=== PATIENT | female | born 1990 | race Caucasian/White ===

== ENCOUNTER 2023-11-06 19:49 | Outpatient (REF) | payer OTHER, SELFPAY ==
[2023-11-12 10:11] LABS: Age Gdln ACOG Testing Note (.); HPV Aptima Negative (Negative); IGP, Aptima HPV, rfx 16/18,45 Note (.)
== END 2023-11-06 19:50 | disposition home or self-care (01) ==
LOC: LAB 19:49
PROVIDERS: PCP Family Medicine; Visit Provider Obstetrics & Gynecology
DX: Z01.419 Encounter for gynecological examination (general) (routine) without abnormal findings (principal)
CPT/HCPCS: 87624; G0145

== ENCOUNTER 2023-11-18 14:32 | Outpatient (OUT) | payer OTHER, SELFPAY ==
--- NOTE | 2023-11-18 14:36 | US_ITS ---
The [address] [address] Patient Name: KHRIS LANG MRN: [id number] date: 1990 Sex: F Assigned Patient Location: [facility] Current Patient Location: Accession/Order Number: [id number] Exam Date: 11/18/2023 14:36 Report Date: 11/19/2023 07:06 At the request of: MARLY IGLESIAS Procedure: US pelvis w/ transvaginal EXAMINATION: US pelvis w/ transvaginal HISTORY: PELVIC PAIN COMPARISON: 10/29/2020 FINDINGS: Transabdominal and transvaginal images The uterus is surgically absent The right ovary is not visualized The left ovary is seen on transabdominal images measuring 3.1 x 1.8 x 3.2 cm. Identified in the left ovary is an area of anechoic echogenicity measuring 1.7 x 1.5 x 1.2 cm. No ascites US/US pelvis w/ transvaginal IMPRESSION: 1.7 cm left ovarian cyst Electronically authenticated by: KIRT ZEE Date: 11/19/2023 07:06
--- OUTSIDE RECORDS SUMMARY | 2023-11-18 14:56 | XMS_ITS | CCD ---
Author Organization [facility] Care Team Providers Care Mounter Sousaphones Name Role Phone KHUSHBU ROJAS Attending Unavailable KIRT DAMON Primary Care Unavailable Kirt Damon Primary Care Provider DR ЕКАТЕРИНА FORD Attending Unavailable LILIANA, DR ЕКАТЕРИНА Corbin Admitting Unavailable DEFRANCE, DR MORALEZ Primary Care Unavailable LILIANA, DR ЕКАТЕРИНА Corbin Consulting Unavailable Humphrey, Monisha Consulting Unavailable DEFRANCE, DR MORALEZ Primary Care Unavailable MATI, DR SOM Ocasio Attending Unavailabl e MATI, DR SOM Ocasio Admitting Unavailabl e MATI, DR SOM Ocasio Consulting Unavailabl e YAYO, DR KIRT Junior Consulting Unavailable FERNANDO, DR YOUNG Attending Unavailable FERNANDO, DR YOUNG Admitting Unavailable DEFRANCE, DR MORALEZ Primary Care Unavailable MATI, DR SOM Ocasio Consulting Unavailabl e YAYO, DR KIRT Junior Consulting Unavailable FERNANDO, DR YOUNG Consulting Unavailable Said, Monisha Consulting Unavailable KELSIE, DR LUKE Attending Unavailable DEFRANCE, DR MORALEZ Primary Care Unavailable KELSIE, DR LUKE Admitting Unavailable KELSIE, DR LUKE Consulting Unavailable DEFRANCE, DR MORALEZ Primary Care Unavailable KELSIE, DR LUKE Attending Unavailable KELSIE, DR LUKE Admitting Unavailable DEFRANCE, DR MORALEZ Primary Care Unavailable KELSIE, DR LUKE Attending Unavailable MISC, DR DOCTOR Referring Unavailable KARASINoemi, DR NARAYAN Consulting Unavailable KELSIE, DR LUKE Admitting Unavailable KELSIE, DR LUKE Consulting Unavailable KELSIE, DR LUKE Consulting Unavailable DEFRANCE, DR MORALEZ Primary Care Unavailable KELSIE, DR LUKE Admitting Unavailable KELSIE, DR LUKE Attending Unavailable NYA AMOS Consulting Unavailable NAZIA MULLER Consulting Unavailable KELSIE, DR LUKE Procedure Practitioner Unavailab le GEOFF, DR NARAYAN Consulting Unavailable GEOFF, DR NARAYAN Attending Unavailable KARASINoemi, DR NARAYAN Admitting Unavailable DEFRANCE, DR MORALEZ Primary Care Unavailable KELSIE, DR LUKE Consulting Unavailable KELSIE, DR LUKE Attending Unavailable KELSIE, DR LUKE Admitting Unavailable KLESIE, DR LUKE Admitting Unavailable KELSIE, DR LUKE Consulting Unavailable DEFRANCE, DR MORALEZ Primary Care Unavailable KELSIE, DR LUKE Attending Unavailable Defrance Kirt SEVILLA Primary Care Provider SHADI, KIRT Choi Attending Unavailable DEFRANCE, KIRT Choi Referring Unavailable DEFRANCE, KIRT Choi Primary Care Unavailable DEFRANCE, KIRT Choi Referring Unavailable DEFRANCE, KIRT Choi Primary Care Unavailable JULISSA BAHENA Attending Unavailable DEFRANCE, KIRT Choi Referring Unavailable TIMMIOSWALDO Thompson Attending Unavailable DEFRANCE, KIRT Choi Referring Unavailable KELSIEMARLY Attending Unavailable Allergies Allergy Classification Reported Allergen(s) Allergy Type Date of Onset Reaction(s) Facility (3 sources) Adhesive agent; Translations: [ADHESIVE] Drug allergy (disorder) 5 [facility] Repository (2 sources) Adhesive agent Propensity to adverse reactions to drug 3 [id number] Medications Current Medications Medication Drug Class(es) Dates Sig (Normalized) Sig (Original) cefdinir 300 mg oral capsule (2 sources) Cephalosporin Antibacterial Start: 10-08-2023 End: 10-18-2023 take 1 capsule by mouth in the morning, then take 1 capsule by mouth at bedtime cefDINIR (OMNICEF) 300 mg capsule Take 1 capsule (300 mg total) by mouth in the morning and 1 capsule (300 mg total) before bedtime. Do all this for 10 days. 20 capsule 0 10/08/2023 10/18/2023 Active ciprofloxacin 3 mg/ml / dexamethasone 1 mg/ml otic suspension (2 sources) Corticosteroid, Quinolone Antimicrobial Start: 09-10-2023 ciprofloxacin-dexAM ETHasone (CIPRODEX) otic suspension etonogestrel 68 mg drug implant (2 sources) Progestin Etonogestrel 68 MG SC implant 68 mg by Implant route once. 0 Active hydrocortisone 10 mg/ml topical cream (2 sources) Corticosteroid Start: 06-07-2022 hydrocortisone (HYTONE) 1 % cream Apply to affected area 2 times daily 15 g 1 06/07/2022 Active ibuprofen 800 mg oral tablet (2 sources) Nonsteroidal Anti-inflammatory Drug Start: 09-10-2023 take 1 tablet by mouth three times daily ibuprofen (MOTRIN) 800 mg tablet Take 1 tablet (800 mg total) by mouth 3 (three) times a day. 90 tablet 5 09/10/2023 Active LORazepam 2 mg oral tablet (2 sources) Benzodiazepine Start: 08-11-2023 take 1 tablet by mouth every eight hours as needed for anxiety LORazepam (ATIVAN) 2 mg tablet Indications: Tic Take 1 tablet (2 mg total) by mouth every 8 (eight) hours as needed for anxiety. 30 tablet 0 08/11/2023 Active Problems Active Problems Problem Classification Problem Date Documented Date Episodic/Chronic Disorders usually diagnosed in infancy, childhood, or adolescence (2 sources) Tic disorder; Translations: [Tic disorder, unspecified] Onset: 12-06-2021 12-06-2021 Chronic Epilepsy; convulsions (1 source) Epilepsy, unspecified, not intractable, without status epilepticus; Translations: [EPILEPSY UNS NOT INTRACT W/O SE] Onset: 01-23-2021 Chronic Immunizations and screening for infectious disease (1 source) Encounter for screening for human papillomavirus (HPV); Translations: [ENC SCREENING HUMAN PAPILLOMAVIRUS] Onset: 09-19-2021 Episodic Menstrual disorders (4 sources) Excessive and frequent menstruation with regular cycle; Translations: [Dysmenorrhea, unspecified] Onset: 01-12-2021 Chronic Mood disorders (1 source) Major depressive disorder, single episode, unspecified; Translations: [SHANTI DEPRESS D/O SINGLE EPIS UNS] Onset: 01-23-2021 Chronic Other ear and sense organ disorders (2 sources) Bilateral hearing loss; Translations: [Unspecified hearing loss, bilateral] Onset: 02-15-2019 02-15-2019 Chronic Other female genital disorders (1 source) Unspecified dyspareunia; Translations: [UNSPECIFIED DYSPAREUNIA] Onset: 01-23-2021 Chronic Other female genital disorders (4 sources) Other specified noninflammatory disorders of vagina; Translations: [OTH SPEC NONINFLAMMATORY D/O VAGINA] Onset: 09-18-2021 Episodic Other hereditary and degenerative nervous system conditions (2 sources) Orofacial dyskinesia; 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] Onset: 12-06-2021 12-06-2021 Chronic Other nutritional; endocrine; and metabolic disorders (1 source) Body mass index (BMI) 40.0-44.9, adult; Translations: [BODY MASS INDEX BMI 40.0-44.9 ADULT] Onset: 01-23-2021 Chronic Other nutritional; endocrine; and metabolic disorders (1 source) Morbid (severe) obesity due to excess calories; Translations: [MORBID SEVERE OBES D/T EXCESS MILAD] Onset: 01-23-2021 Chronic Other nutritional; endocrine; and metabolic disorders (1 source) Obesity, unspecified; Translations: [OBESITY UNSPECIFIED] Onset: 10-31-2020 Chronic Other nutritional; endocrine; and metabolic disorders (1 source) Body mass index (BMI) 45.0-49.9, adult; Translations: [BODY MASS INDEX BMI 45.0-49.9 ADULT] Onset: 10-31-2020 Chronic Other screening for suspected conditions (not mental disorders or infectious disease) (1 source) Encounter for screening for malignant neoplasm of cervix; Translations: [ENC SCREENING MALIG NEOPLASM CERV] Onset: 09-19-2021 Episodic Other upper respiratory infections (5 sources) Acute ethmoidal sinusitis; Translations: [Acute ethmoidal sinusitis, unspecified] Onset: 10-08-2023 10-08-2023 Episodic Substance-related disorders (2 sources) Nicotine dependence, other tobacco product, uncomplicated; Translations: [Nicotine dependence, cigarettes, uncomplicated] Onset: 10-31-2020 Chronic Unclassified (1 source) CONTACT W/AND (SUSP) EXPOS COVID-19; Translations: [CONTACT W/AND (SUSP) EXPOS COVID-19] Onset: 02-01-2021 Unclassified (1 source) Sinus Problem Onset: 10-08-2023 Unclassified (1 source) Earache Onset: 10-08-2023 Past or Other Problems Problem Classification Problem Date Documented Date Episodic/Chronic Abdominal pain (14 sources) Pelvic and perineal pain; Translations: [Unspecified abdominal pain] Onset: 10-29-2020 Episodic Fever of unknown origin (1 source) Fever, unspecified; Translations: [FEVER UNSPECIFIED] Onset: 01-23-2021 Episodic Fluid and electrolyte disorders (1 source) Dehydration; Translations: [DEHYDRATION] Onset: 02-01-2021 Episodic Mood disorders (2 sources) Mood disorders Onset: 10-08-2023 10-08-2023 Nausea and vomiting (1 source) Nausea; Translations: [NAUSEA] Onset: 02-01-2021 Episodic Other aftercare (1 source) Other fpc (current) drug therapy; Translations: [OTH [facility] CURRENT DRUG THERAPY] Onset: 02-01-2021 Episodic Other connective tissue disease (1 source) Pain in left arm; Translations: [Left arm pain] Episodic Other female genital disorders (1 source) Other specified noninflammatory disorders of uterus; Translations: [OTH SPEC NONINFLAMMATORY D/O UTERUS] Onset: 10-31-2020 Episodic Other upper respiratory disease (2 sources) Nasal congestion; Translations: [Nasal congestion] Onset: 02-15-2019 02-15-2019 Episodic Otitis media and related conditions (2 sources) Perforation of left tympanic membrane; Translations: [Unspecified perforation of tympanic membrane, left ear] Onset: 02-15-2019 02-15-2019 Episodic Ovarian cyst (1 source) Unspecified ovarian cyst, right side; Translations: [UNSPECIFIED OVARIAN CYST RIGHT SIDE] Onset: 01-23-2021 Episodic Residual codes; unclassified (1 source) Acquired absence of both cervix and uterus; Translations: [ACQUIRED ABSENCE BOTH CERVIX AND UTERUS] Onset: 02-01-2021 Episodic Residual codes; unclassified (1 source) Acquired absence of other specified parts of digestive tract; Translations: [ACQ ABSENCE OTH PART DIGESTV TRACT] Onset: 10-31-2020 Episodic Screening and history of mental health and substance abuse codes (1 source) Personal history of nicotine dependence; Translations: [PERSONAL HISTORY OF NICOTINE DEPEND] Onset: 02-01-2021 Episodic Unclassified (2 sources) Onset: 02-25-2023 02-25-2023 Results Test Name Value Interpretation Reference Range Facility CBC AND AUTO DIFFon 10-08-19 ABSOLUTE BASOPHIL 0.1 X10E9/L Normal 0.0-0.2 [facility] Comment on above: Performed By: #### C BCA, 35014-3 #### [facility] ([id number]) [address], [address] [place] [address] ABSOLUTE NEUTROPHIL 3.0 X10E9/L Normal 1.5-6.6 [facility] Comment on above: Performed By: #### William NOLASCO, 99779-3 #### [facility] ([id number]) [address], [address] [place] [address] Basophils/100 WBC (Bld) 1.4 % Normal [facility] Comment on above: Performed By: #### William NOLASCO, 07233-8 #### [facility] ([id number]) [address], [address] [place] [address] Eosinophils (Bld) [#/Vol] 0.3 10*3/uL Normal 0.0-0.4 [facility] Comment on above: Performed By: #### William NOLASCO, 85243-8 #### [facility] ([id number]) [address], [address] [place] [address] Eosinophils/100 WBC (Bld) 5.9 % Normal [facility] Comment on above: Performed By: #### William NOLASCO, 22010-7 #### [facility] ([id number]) [address] [facility] [address] [place] [address] Erythrocyte distribution width (RBC) [Ratio] 12.8 % Normal 11.5-15.0 [facility] Comment on above: Performed By: #### William NOLASCO, 10676-0 #### [facility] ([id number]) [address], [address] [place] [address] Hematocrit (Bld) [Volume fraction] 39.4 % Normal 35-47 [facility] Comment on above: Performed By: #### William NOLASCO, 99427-1 #### [facility] ([id number]) [address], [address] [place] [address] Hemoglobin (Bld) [Mass/Vol] 13.5 g/dL Normal 11.7-15.5 [facility] Comment on above: Performed By: #### William NOLASCO, 76497-0 #### [facility] ([id number]) [address], [address] [place] [address] Lymphocytes (Bld) [#/Vol] 1.3 10*3/uL Normal 1.0-3.5 [facility] Comment on above: Performed By: #### William NOLASCO, 19095-6 #### [facility] ([id number]) [address], [address] [place] [address] Lymphocytes/100 WBC (Bld) 23.0 % Normal [facility] Comment on above: Performed By: #### William NOLASCO, 11978-9 #### [facility] ([id number]) [address], [address] [place] [address] MCH (RBC) [Entitic mass] 32.0 pg Normal 27-34 [facility] Comment on above: Performed By: #### William NOLASCO, 57646-2 #### [facility] ([id number]) [address], [address] [place] [address] MCHC (RBC) [Mass/Vol] 34.2 g/dL Normal 32-36 [facility] Comment on above: Performed By: #### William NOLASCO, 12943-9 #### [facility] ([id number]) [address], [address] [place] [address] MCV (RBC) [Entitic vol] 94 fL Normal 80-100 [facility] Comment on above: Performed By: #### William NOLASCO, 21333-6 #### [facility] ([id number]) [address], [address] [place] [address] Monocytes (Bld) [#/Vol] 1.0 10*3/uL High 0-0.9 [facility] Comment on above: Performed By: #### William NOLASCO, 82629-0 #### [facility] ([id number]) [address], [address] [place] [address] Monocytes/100 WBC (Bld) 17.6 % Normal [facility] Comment on above: Performed By: #### William NOLASCO, 78925-6 #### [facility] ([id number]) [address], [facility] [address] [place] [address] Neutrophils/100 WBC (Bld) 52.1 % Normal [facility] Comment on above: Performed By: #### William NOLASCO, 55714-5 #### [facility] ([id number]) [address] [place] [address] Platelet mean volume (Bld) [Entitic vol] 10.1 fL Normal 7-12 [facility] Comment on above: Performed By: #### William NOLASCO, 47016-2 #### [facility] ([id number]) [address] [address] [place] [address] Platelets (Bld) [#/Vol] 268 10*3/uL Normal 150-450 [facility] Comment on above: Performed By: #### William NOLASCO, 20891-0 #### [facility] ([id number]) [address] [address] [place] [address] RBC COUNT 4.21 X10E12/L Normal 3.80-5.20 [facility] Comment on above: Performed By: #### William NOLASCO, 80518-1 #### [facility] ([id number]) [address] [address] WBC (Bld) [#/Vol] 5.7 10*3/uL Normal 4.0-11.0 [facility] Comment on above: Performed By: #### William NOLASCO, 27370-0 #### [facility] ([id number]) [address], [facility] [address] [place] [address] CBC auto differentialon 02-0 Basophils (Bld) [#/Vol] 0.1 10*3/uL [facility] Basophils/100 WBC (Bld) 1.4 % [facility] Eosinophils (Bld) [#/Vol] 0.3 10*3/uL [facility] Eosinophils/100 WBC (Bld) 5.9 % [facility] Erythrocyte distribution width (RBC) [Ratio] 12.8 % 11.5 - 15.0 % [facility] Hematocrit (Bld) [Volume fraction] 39.4 % 35 - 47 % [facility] Hemoglobin (Bld) [Mass/Vol] 13.5 g/dL 11.7 - 15.5 g/dL [facility] Interpretation and review of laboratory results Abnormal [facility] Lymphocytes (Bld) [#/Vol] 1.3 10*3/uL [facility] Lymphocytes/100 WBC (Bld) 23.0 % [facility] MCH (RBC) [Entitic mass] 32.0 pg 27 - 34 pg [facility] MCHC (RBC) [Mass/Vol] 34.2 g/dL 32 - 36 g/dL [facility] MCV (RBC) [Entitic vol] 94 fL 80 - 100 fL [facility] Monocytes (Bld) [#/Vol] 1.0 10*3/uL High [facility] Monocytes/100 WBC (Bld) 17.6 % [facility] Neutrophils (Bld) [#/Vol] 3.0 10*3/uL [facility] Neutrophils/100 WBC (Bld) 52.1 % [facility] Platelet mean volume (Bld) [Entitic vol] 10.1 fL 7 - 12 fL [facility] Platelets (Bld) [#/Vol] 268 10*3/uL [facility] RBC (Bld) [#/Vol] 4.21 10*6/uL [facility] WBC corrected for nucl RBC Auto (Bld) [#/Vol] 5.7 [facility] Heterophile Ab IA.rapid Ql ( S/P/Bld)on 10-08-2023 [facility] MONO TEST Negative Normal NEG [facility] Comment on above: Performed By: #### C [facility], 73183-1 #### [facility] ([id number]) [address], [address] [place] [address] Mononucleosis teston 024 Heterophile Ab IA.rapid Ql (S/P/Bld) Negative Negative^Negat annie [facility] PAP ACOG PANEL 2: 30 to 65on 09-21-2021 . . Normal [facility] Comment on above: Result Comment: Perf ormed at: WB Performed By: #### 4 [id number] #### [facility] [address] [address] [address] Yefri Lundberg Age Gdln ACOG Testing - Normal [facility] Comment on above: Performed By: #### 4 [id number] #### [facility] [address] [address] [address] Yefri Lundberg DIAGNOSIS: Comment Normal [facility] Comment on above: Result Comment: NEGA TIVE FOR INTRAEPITHELIAL LESION OR MALIGNANCY. THIS SPECIMEN WAS RESCREENED PART OF OUR VALVE LINER RUBBER PROGRAM. Performed at: WB Performed By: #### 4 [id number] #### [facility] [address] [address] [address] Yefri Lundberg HPV Aptima Negative Normal Negative [facility] Comment on above: Result Comment: This nucleic acid amplification test detects fourteen high-risk HPV types (16,18,31,33,35,39,45,51,52,56,58,59,66,68) without differentiation. Performed at: =G Performed By: #### 4 [id number] #### [facility] [address] [address] [address] Yefri Lundberg Methodology: Comment Normal [facility] Comment on above: Result Comment: This liquid based ThinPrep(R) pap test was screened with the use of an image guided system. Performed at: WB Performed By: #### 4 [id number] #### [facility] [address] [address] [address] Yefri Lundberg Note: Comment Normal [facility] Comment on above: Result Comment: The Pap smear is a screening test designed to aid in the detection of premalignant and malignant conditions of the uterine cervix. It is not a diagnostic procedure and should not be used as the sole means of detecting cervical cancer. Both false-positive and false-negative reports do occur. . Performed at: WB Performed By: #### 4 [id number] #### [facility] [address] [place] [address] Dr. Yefri Lundberg Performed by: Comment Normal [facility] Comment on above: Result Comment: Rocio Bethea, Scuba Diving Instructor (ASCP) Performed at: WB Performed By: #### 4 [id number] #### [facility] [address] [place] [address] Dr. Yefri Lundberg QC reviewed by: Comment Normal [facility] Comment on above: Result Comment: Verona Ram, Supervisory Scuba Diving Instructor (ASCP) Performed at: WB Performed By: #### 4 [id number] #### [facility] [address] [place] [address] Dr. Yefri Lundberg Specimen adequacy: Comment Normal [facility] Comment on above: Result Comment: Sati sfactory for evaluation. Endocervical and/or squamous metaplastic cells (endocervical component) are present. Performed at: WB Performed By: #### 4 [id number] #### [facility] [address] [place] [address] Dr. Yefri Lundberg VAGINITIS/VAGINOSIS DNA PROB Enrique 09-19-2021 Jennifer species Negative Normal Negative [facility] Comment on above: Performed By: #### C VDTBH #### [facility] [address] [place] [address] Manjula Mattson Gardnerella vaginalis Negative Normal Negative [facility] Comment on above: Performed By: #### C VDTBH #### [facility] [address] [place] [address] Manjula Mattson Trichomonas vaginalis Negative Normal Negative [facility] Comment on above: Performed By: #### C VDTBH #### [facility] [address] [place] [address] Manjula Mattson CBC AUTO DIFFon 01-24-2021 BASO # 0.1 103/ul Normal 0.0-0.1 [facility] Comment on above: Performed By: #### C VDTB #### [facility] [address] [place], [place] [address] Manjula Twila Basophils/100 WBC (Bld) 1.5 % Normal 0.2-2.0 [facility] Comment on above: Performed By: #### C VDTBH #### [facility] [address] [place] [address] Manjula Twila EO # 0.9 103/ul Critically high 0.0-0.7 [facility] Comment on above: Performed By: #### C VDTBH #### [facility] [address] [place] [address] Manjula Twila Eosinophils/100 WBC (Bld) 12.5 % Critically high 0.9-7.0 [facility] Comment on above: Performed By: #### C VDTBH #### [facility] [address] [place] [address] Manjula Twila Erythrocyte distribution width (RBC) [Ratio] 12.3 % Normal 11.0-15.0 [facility] Comment on above: Performed By: #### C VDTBH #### [facility] [address] [place] [address] Manjula Twila Hematocrit (Bld) [Volume fraction] 30.6 % Critically low 36.0-48.0 [facility] Comment on above: Performed By: #### C VDTBH #### [facility] [address] [place] [address] Manjula Twila Hemoglobin (Bld) [Mass/Vol] 10.1 g/dL Critically low 12.0-16.0 [facility] Comment on above: Performed By: #### C VDTBH #### [facility] [address] [place] [address] Manjula Twila IG # 0.03 10e3/ul Normal 0.00-0.03 [facility] Comment on above: Performed By: #### C VDTBH #### [facility] [address] [place] [address] Manjula Twila IG % 0.4 % Normal 0.0-0.5 [facility] Comment on above: Performed By: #### C VDTBH #### [facility] [address] [place] [address] Manjula Twila LYMPH # 1.1 103/ul Critically low 1.2-3.8 [facility] Comment on above: Performed By: #### C VDTBH #### [facility] [address] [place] [address] Manjula Mattson Lymphocytes/100 WBC (Bld) 16.8 % Critically low 20.5-60.0 [facility] Comment on above: Performed By: #### C VDTBH #### [facility] [address] [place] [address] Manjula Mattson MANUAL DIFF REQ NO Normal [facility] Comment on above: Performed By: #### C VDTBH #### [facility] [address] [place] [address] Manjulahaily Yepezen MCH (RBC) [Entitic mass] 31.6 pg Normal 26.7-34.0 [facility] Comment on above: Performed By: #### C VDTBH #### [facility] [address] [place] [address] Manjulahaily Mattson MCHC (RBC) [Mass/Vol] 33.0 g/dL Normal 29.9-35.2 [facility] Comment on above: Performed By: #### C VDTBH #### [facility] [address] [place] [address] Manjulahaily Mattson MCV (RBC) [Entitic vol] 95.6 fL Normal 81.0-99.0 [facility] Comment on above: Performed By: #### C VDTBH #### [facility] [address] [place] [address] Manjula Twila MONO # 0.6 103/ul Normal 0.3-0.8 [facility] Comment on above: Performed By: #### C VDTBH #### [facility] [address] [place], [place] [id number] Manjula Twila Monocytes/100 WBC (Bld) 9.3 % Normal 1.7-12.0 [facility] Comment on above: Performed By: #### C VDTBH #### [facility] [address] [place], [place] [address] Manjulahaily Yepezen NEUT # 4.1 103/ul Normal 1.4-6.5 [facility] Comment on above: Performed By: #### C VDTBH #### [facility] [address] [place], [place] [address] Manjula Twila Neutrophils/100 WBC (Bld) 59.5 % Normal 43.0-75.0 [facility] Comment on above: Performed By: #### C VDTBH #### [facility] [address] [place], [place] [id number] Manjulahaily Mattson Platelet mean volume (Bld) [Entitic vol] 11.0 fL Normal 9.5-13.5 [facility] Comment on above: Performed By: #### C VDTBH #### [facility] [address] [place] [address] Manjula Twila PLT 247 103/ul Normal 150-450 [facility] Comment on above: Performed By: #### C VDTBH #### [facility] [address] [place], [place] [address] Manjula Twila RBC 3.20 106/ul Critically low 4.20-5.40 [facility] Comment on above: Performed By: #### C VDTBH #### [facility] [address] [place], [place] [address] Manjula Twila WBC 6.8 103/ul Normal 4.0-11.0 [facility] Comment on above: Performed By: #### C VDTBH #### [facility] [address] [place], [place] [address] Manjula Twila CBC AUTO DIFFon 01-23-2021 BASO # 0.1 103/ul Normal 0.0-0.1 [facility] Comment on above: Performed By: #### C BC #### [facility] [address] [place], [place] [address] Manjula Twila Basophils/100 WBC (Bld) 0.8 % Normal 0.2-2.0 [facility] Comment on above: Performed By: #### C BC #### [facility] [address] [place] [address] Manjula Twila EO # 0.7 103/ul Normal 0.0-0.7 [facility] Comment on above: Performed By: #### C BC #### [facility] [address] [place], [place] [address] Manjula Twila Eosinophils/100 WBC (Bld) 7.1 % Critically high 0.9-7.0 [facility] Comment on above: Performed By: #### C BC #### [facility] [address] [place] [address] Manjula Twila Erythrocyte distribution width (RBC) [Ratio] 11.9 % Normal 11.0-15.0 [facility] Comment on above: Performed By: #### C BC #### [facility] [address] [place] [address] Manjula Twila Hematocrit (Bld) [Volume fraction] 31.7 % Critically low 36.0-48.0 [facility] Comment on above: Performed By: #### C BC #### [facility] [address] [place] [address] Manjula Twila Hemoglobin (Bld) [Mass/Vol] 10.6 g/dL Critically low 12.0-16.0 [facility] Comment on above: Performed By: #### C BC #### [facility] [address] [place] [address] Manjula Twila IG # 0.05 10e3/ul Critically high 0.00-0.03 [facility] Comment on above: Performed By: #### C BC #### [facility] [address] [place] [address] Manjula Twila IG % 0.5 % Normal 0.0-0.5 [facility] Comment on above: Performed By: #### C BC #### [facility] [address] [place] [address] Manjula Twila LYMPH # 1.2 103/ul Normal 1.2-3.8 [facility] Comment on above: Performed By: #### C BC #### [facility] [address] [id number] Manjula Twila Lymphocytes/100 WBC (Bld) 11.7 % Critically low 20.5-60.0 [facility] Comment on above: Performed By: #### C BC #### [facility] [address] [place], [place] [address] Manjula Twila MANUAL DIFF REQ NO Normal [facility] Comment on above: Performed By: #### C BC #### [facility] [address] [place], [place] [address] Manjula Twila MCH (RBC) [Entitic mass] 31.5 pg Normal 26.7-34.0 [facility] Comment on above: Performed By: #### C BC #### [facility] [address] [place] [address] Manjulahaily Yepezen MCHC (RBC) [Mass/Vol] 33.4 g/dL Normal 29.9-35.2 [facility] Comment on above: Performed By: #### C BC #### [facility] [address] [place], [place] [address] Manjula Twila MCV (RBC) [Entitic vol] 94.3 fL Normal 81.0-99.0 [facility] Comment on above: Performed By: #### C BC #### [facility] [address] [place], [place] [address] Manjula Twila MONO # 1.0 103/ul Critically high 0.3-0.8 [facility] Comment on above: Performed By: #### C BC #### [facility] [address] [place], [place] [address] Manjula Twila Monocytes/100 WBC (Bld) 10.0 % Normal 1.7-12.0 [facility] Comment on above: Performed By: #### C BC #### [facility] [address] [place], [place] [address] Manjula Twila NEUT # 7.3 103/ul Critically high 1.4-6.5 [facility] Comment on above: Performed By: #### C BC #### [facility] [address] [place] [address] Manjula Twila Neutrophils/100 WBC (Bld) 69.9 % Normal 43.0-75.0 [facility] Comment on above: Performed By: #### C BC #### [facility] [address] [place] [address] Manjula Twila Platelet mean volume (Bld) [Entitic vol] 10.8 fL Normal 9.5-13.5 [facility] Comment on above: Performed By: #### C BC #### [facility] [address] [place], [place] [address] Manjula Twila PLT 251 103/ul Normal 150-450 [facility] Comment on above: Performed By: #### C BC #### [facility] [address] [place] [address] Manjula Twila RBC 3.36 106/ul Critically low 4.20-5.40 [facility] Comment on above: Performed By: #### C BC #### [facility] [address] [place], [place] [address] Manjula Twila WBC 10.4 103/ul Normal 4.0-11.0 [facility] Comment on above: Performed By: #### C BC #### [facility] [address] [place], [place] [address] Manjula Twila CBC AUTO DIFFon 01-22-2021 BASO # 0.1 103/ul Normal 0.0-0.1 [facility] Comment on above: Performed By: #### C BC #### [facility] [address] [place], [place] [address] Manjula Twila Basophils/100 WBC (Bld) 0.8 % Normal 0.2-2.0 [facility] Comment on above: Performed By: #### C BC #### [facility] [address] [place], [place] [address] Manjula Twila EO # 0.5 103/ul Normal 0.0-0.7 [facility] Comment on above: Performed By: #### C BC #### [facility] [address] [place], [place] [address] Manjula Twila Eosinophils/100 WBC (Bld) 3.5 % Normal 0.9-7.0 [facility] Comment on above: Performed By: #### C BC #### [facility] [address] [place], [place] [address] Manjula Twila Erythrocyte distribution width (RBC) [Ratio] 11.9 % Normal 11.0-15.0 [facility] Comment on above: Performed By: #### C BC #### [facility] [address] [place], [place] [address] Manjula Twila Hematocrit (Bld) [Volume fraction] 36.7 % Normal 36.0-48.0 [facility] Comment on above: Performed By: #### C BC #### [facility] [address] [place], [place] [address] Manjula Twila Hemoglobin (Bld) [Mass/Vol] 12.5 g/dL Normal 12.0-16.0 [facility] Comment on above: Performed By: #### C BC #### [facility] [address] [place] [address] Manjula Twila IG # 0.06 10e3/ul Critically high 0.00-0.03 [facility] Comment on above: Performed By: #### C BC #### [facility] [address] [place], [place] [address] Manjula Twila IG % 0.5 % Normal 0.0-0.5 [facility] Comment on above: Performed By: #### C BC #### [facility] [address] [place], [place] [address] Manjula Twila LYMPH # 0.9 103/ul Critically low 1.2-3.8 [facility] Comment on above: Performed By: #### C BC #### [facility] [address] [place], [place] [address] Manjula Twila Lymphocytes/100 WBC (Bld) 7.2 % Critically low 20.5-60.0 [facility] Comment on above: Performed By: #### C BC #### [facility] [address] [place], [place] [address] Manjula Twila MANUAL DIFF REQ NO Normal [facility] Comment on above: Performed By: #### C BC #### [facility] [address] [place], [place] [address] Manjula Mattson MCH (RBC) [Entitic mass] 31.6 pg Normal 26.7-34.0 [facility] Comment on above: Performed By: #### C BC #### [facility] [address] [place] [address] Manjula Mattson MCHC (RBC) [Mass/Vol] 34.1 g/dL Normal 29.9-35.2 [facility] Comment on above: Performed By: #### C BC #### [facility] [address] [place] [address] Manjula Mattson MCV (RBC) [Entitic vol] 92.9 fL Normal 81.0-99.0 [facility] Comment on above: Performed By: #### C BC #### [facility] [address] [place] [address] Manjula Mattson MONO # 1.0 103/ul Critically high 0.3-0.8 [facility] Comment on above: Performed By: #### C BC #### [facility] [address] [place] [address] Manjula Mattson Monocytes/100 WBC (Bld) 7.6 % Normal 1.7-12.0 [facility] Comment on above: Performed By: #### C BC #### [facility] [address] [place] [address] Manjula Mattson NEUT # 10.2 103/ul Critically high 1.4-6.5 [facility] Comment on above: Performed By: #### C BC #### [facility] [address] [place], [place] [address] Manjula Twila Neutrophils/100 WBC (Bld) 80.4 % Critically high 43.0-75.0 [facility] Comment on above: Performed By: #### C BC #### [facility] [address] [place], [place] [address] Manjula Mattson Platelet mean volume (Bld) [Entitic vol] 10.6 fL Normal 9.5-13.5 [facility] Comment on above: Performed By: #### C BC #### [facility] [address] [place], [place] [address] Manjula Mattson PLT 295 103/ul Normal 150-450 [facility] Comment on above: Performed By: #### C BC #### [facility] [address] [place], [place] [address] Manjula Mattson RBC 3.95 106/ul Critically low 4.20-5.40 [facility] Comment on above: Performed By: #### C BC #### [facility] [address] [place], [place] [address] Manjula Mattson WBC 12.7 103/ul Critically high 4.0-11.0 [facility] Comment on above: Performed By: #### C BC #### [facility] [address] [place], [place] [address] Manjula Mattson CULTURE BLOODon 01-22-2021 Microscopic examination of blood, culture Specimen Comments: ONLY PEDIATRIC BOTTLE OBTAINED FOR SET#2 Culture Observations: NO GROWTH AT 5 DAYS. Normal [facility] Comment on above: Performed By: #### B LDCX2 #### [facility] [address] [place], [place] [address] Manjula Mattson Microscopic examination of blood, culture Culture Observations: NO GROWTH AT 5 DAYS. Normal [facility] Comment on above: Performed By: #### C BC #### [facility] [address] [place], [place] [address] Manjula Mattson Covid-19 PCR (CVDTB)on 12-31 SARS-CoV-2 (COVID-19) RNA ANIYAH+probe Ql (Unsp spec) Not detected Normal NOT DETECTED [facility] Comment on above: Result Comment: This test is not yet approved or cleared by the [place] FDA. When there are no FDA-approved or cleared tests available, and other criteria are met, FDA can make tests available under an emergency access mechanism called an Emergency Use Authorization (EUA). The EUA for this test is supported by the Multifocal Lens Inspector of Health and Human Service's (HHS's) declaration that circumstances exist to justify the emergency use of in vitro diagnostics for the detection and/or diagnosis of the virus that causes COVID-19. This EUA will remain in effect (meaning this test can be used) for the duration of the COVID-19 declaration justifying emergency of IVDs, unless it is terminated or revoked by FDA (after which the test may no longer be used). When diagnostic testing is negative, the possibility of a false negative should be considered in the context of a patient's recent exposures and the presence of clinical signs and symptoms consistent with SARS-CoV-2. Performed By: #### C VDTB #### [facility] [address] [place] [address] Manjula Twila CBC AUTO DIFFon 01-21-2021 BASO # 0.1 103/ul Normal 0.0-0.1 [facility] Comment on above: Performed By: #### C VDTB #### [facility] [address] [place], [place] [address] Manjula Mattson Basophils/100 WBC (Bld) 0.9 % Normal 0.2-2.0 [facility] Comment on above: Performed By: #### C VDTB #### [facility] [address] [place], [place] [address] Manjula Twila EO # 0.7 103/ul Normal 0.0-0.7 [facility] Comment on above: Performed By: #### C VDTB #### [facility] [address] [place], [place] [address] Manjula Mattson Eosinophils/100 WBC (Bld) 4.7 % Normal 0.9-7.0 [facility] Comment on above: Performed By: #### C VDTBH #### [facility] [address] [place], [place] [address] Manjula Twila Erythrocyte distribution width (RBC) [Ratio] 12.0 % Normal 11.0-15.0 [facility] Comment on above: Performed By: #### C VDTBH #### [facility] [address] [place], [place] [address] Manjula Twila Hematocrit (Bld) [Volume fraction] 36.7 % Normal 36.0-48.0 [facility] Comment on above: Performed By: #### C VDTBH #### [facility] [address] [id number] Manjula Twila Hemoglobin (Bld) [Mass/Vol] 12.6 g/dL Normal 12.0-16.0 [facility] Comment on above: Performed By: #### C VDTBH #### [facility] [address] [place], [place] [address] Manjula Twila IG # 0.07 10e3/ul Critically high 0.00-0.03 [facility] Comment on above: Performed By: #### C VDTBH #### [facility] [address] [place] [address] Manjula Twila IG % 0.5 % Normal 0.0-0.5 [facility] Comment on above: Performed By: #### C VDTBH #### [facility] [address] [place] [address] Manjula Twila LYMPH # 1.6 103/ul Normal 1.2-3.8 [facility] Comment on above: Performed By: #### C VDTBH #### [facility] [address] [place] [address] Manjula Mattson Lymphocytes/100 WBC (Bld) 10.6 % Critically low 20.5-60.0 [facility] Comment on above: Performed By: #### C VDTBH #### [facility] [address] [place] [address] Manjula Mattson MANUAL DIFF REQ NO Normal [facility] Comment on above: Performed By: #### C VDTBH #### [facility] [address] [place], [place] [address] Manjula Mattson MCH (RBC) [Entitic mass] 32.0 pg Normal 26.7-34.0 [facility] Comment on above: Performed By: #### C VDTBH #### [facility] [address] [place] [address] Manjulahaily Mattson MCHC (RBC) [Mass/Vol] 34.3 g/dL Normal 29.9-35.2 [facility] Comment on above: Performed By: #### C VDTBH #### [facility] [address] [place], [place] [address] Manjula Mattson MCV (RBC) [Entitic vol] 93.1 fL Normal 81.0-99.0 [facility] Comment on above: Performed By: #### C VDTBH #### [facility] [address] [place], [place] [address] Manjula Mattson MONO # 1.3 103/ul Critically high 0.3-0.8 [facility] Comment on above: Performed By: #### C VDTBH #### [facility] [address] [place], [place] [address] Manjula Mattson Monocytes/100 WBC (Bld) 8.4 % Normal 1.7-12.0 [facility] Comment on above: Performed By: #### C VDTBH #### [facility] [address] [place], [place] [address] Manjula Yepezen NEUT # 11.4 103/ul Critically high 1.4-6.5 [facility] Comment on above: Performed By: #### C VDTBH #### [facility] [address] [place], [place] [address] Manjula Mattson Neutrophils/100 WBC (Bld) 74.9 % Normal 43.0-75.0 [facility] Comment on above: Performed By: #### C VDTBH #### [facility] [address] [place], [place] [address] Manjula Mattson Platelet mean volume (Bld) [Entitic vol] 10.4 fL Normal 9.5-13.5 [facility] Comment on above: Performed By: #### C VDTBH #### [facility] [address] [place], [place] [address] Manjula Twila PLT 302 103/ul Normal 150-450 [facility] Comment on above: Performed By: #### C VDTBH #### [facility] [address] [place], [place] [address] Manjula Twila RBC 3.94 106/ul Critically low 4.20-5.40 [facility] Comment on above: Performed By: #### C VDTBH #### [facility] [address] [place], [place] [address] Manjula Mattson WBC 15.2 103/ul Critically high 4.0-11.0 [facility] Comment on above: Performed By: #### C VDTBH #### [facility] [address] [place], [place] [address] ABD/PELV W CONon 01-22-[address] ABD/PELV W CON EXAM: CT ABD/PELV W CON 01/21/2021 12:11 AM EDT [id number] CLINICAL STATEMENT: GENERALIZED ABDOMINAL PAIN COMPARISON: 10/29/2020 TECHNIQUE: Helically acquired images were obtained of the abdomen and pelvis following 100 cc of Omnipaque 300 IV contrast. No oral contrast was administered. AEC is utilized. 2-D reconstructed images are provided. FINDINGS: Cholecystectomy. The upper abdominal solid organs are unremarkable. There is no bowel obstruction or free air. There is no ascites. There is no evidence of aortic aneurysm or dissection. The celiac artery, superior mesenteric artery, and superior mesenteric vein are grossly patent. Multiple subcentimeter mesenteric and para-aortic retroperitoneal lymph nodes. There is no appendicitis or diverticulitis. Evidence of hysterectomy with a complex 5.9 x 3.6 x 5.8 cm pelvic fluid collection containing air and adjacent stranding. Correlate for seroma, hematoma and/or abscess.Recent postsurgical changes. The bladder is unremarkable. The lung bases are clear. There are no destructive bone lesions identified. IMPRESSION: Evidence of hysterectomy with a complex 5.9 x 3.6 x 5.8 cm pelvic fluid collection containing air and adjacent stranding. Correlate for seroma, hematoma and/or abscess.Recent postsurgical changes. FOLLOW-UP: Follow-up as clinically indicated. Dose reduction techniques were achieved by using automated exposure control and/or adjustment of mA and/or kV according to patient size and/or use of iterative reconstruction technique. Electronically authenticated by: MONISHA MCNAIR Date: 2021-01-21 02:34 Normal [facility] CULTURE BLOODon 01-21-2021 Microscopic examination of blood, culture Culture Observations: NO GROWTH AT 5 DAYS. Normal [facility] Comment on above: Performed By: #### C BC #### [facility] [address] [place] [address] Manjula Twila LACTATE/LACTIC ACIDon 2020 Lactate [Moles/Vol] 0.7 mmol/L Normal 0.7-2.0 [facility] Comment on above: Performed By: #### C #### [facility] [address] [place] [id number] Manjlua Twila PROF 14(COMP METB)on 021 Albumin [Mass/Vol] 3.5 g/dL Normal 3.5-5.0 [facility] Comment on above: Performed By: #### C VDTBH #### [facility] [address] [place], [place] [id number] Manjula Twila Albumin/Globulin [Mass ratio] 0.8 {ratio} Normal [facility] Comment on above: Performed By: #### C VDTBH #### [facility] [address] [place], [place] [address] Manjula Twila ALP [Catalytic activity/Vol] 74 U/L Normal 38-126 [facility] Comment on above: Performed By: #### C VDTBH #### [facility] [address] [place], [place] [id number] Manjula Twila ALT [Catalytic activity/Vol] 29 U/L Normal 9-52 [facility] Comment on above: Performed By: #### C VDTBH #### [facility] [address] [place], [place] [address] Manjula Twila Anion gap [Moles/Vol] 15.1 mmol/L Normal [facility] Comment on above: Performed By: #### C VDTBH #### [facility] [address] [place], [place] [address] Manjula Twila AST [Catalytic activity/Vol] 27 U/L Normal 14-36 [facility] Comment on above: Performed By: #### C VDTBH #### [facility] [address] [place], [place] [address] Manjula Twila Bilirubin [Mass/Vol] 1.8 mg/dL Critically high 0.2-1.3 [facility] Comment on above: Performed By: #### C VDTBH #### [facility] [address] [address] Manjula Twila Calcium [Mass/Vol] 9.0 mg/dL Normal 8.4-10.2 [facility] Comment on above: Performed By: #### C VDTBH #### [facility] [address] [place] [address] Manjula Twila Chloride [Moles/Vol] 102 mmol/L Normal 98-107 [facility] Comment on above: Performed By: #### C VDTBH #### [facility] [address] [place] [address] Manjula Twila CO2 [Moles/Vol] 24.0 mmol/L Normal 22.0-30.0 [facility] Comment on above: Performed By: #### C VDTBH #### [facility] [address] [place] [address] Manjula Twila Creatinine [Mass/Vol] 0.88 mg/dL Normal 0.52-1.04 [facility] Comment on above: Performed By: #### C VDTBH #### [facility] [address] [place], [place] [address] Manjula Twila EGFR-AF GREEK >60 Normal >=60 [facility] Comment on above: Performed By: #### C VDTBH #### [facility] [address] [place] [address] Manjula Twila EGFR-NON AF GREEK >60 Normal >=60 [facility] Comment on above: Performed By: #### C VDTBH #### [facility] [address] [place] [address] Manjula Twila Globulin (S) [Mass/Vol] 4.5 g/dL Normal [facility] Comment on above: Performed By: #### C VDTBH #### [facility] [address] [place] [address] Manjula Twila Glucose [Mass/Vol] 108 mg/dL Critically high 74-106 [facility] Comment on above: Performed By: #### C VDTBH #### [facility] [address] [address] Manjula Twila Potassium [Moles/Vol] 3.1 mmol/L Critically low 3.4-5.0 [facility] Comment on above: Performed By: #### C VDTBH #### [facility] [address] [place], [place] [address] Manjula Twila Protein [Mass/Vol] 8.0 g/dL Normal 6.1-8.2 [facility] Comment on above: Performed By: #### C VDTBH #### [facility] [address] [place], [place] [address] Manjula Twila Sodium [Moles/Vol] 138 mmol/L Normal 137-145 [facility] Comment on above: Performed By: #### C VDTBH #### [facility] [address] [place] [address] Manjula Twila Urea nitrogen [Mass/Vol] 13.0 mg/dL Normal 7.0-17.0 [facility] Comment on above: Performed By: #### C VDTBH #### [facility] [address] [place] [address] Manjula Twila Urea nitrogen/Creatinine [Mass ratio] 14.8 mg/mg Normal [facility] Comment on above: Performed By: #### C VDTBH #### [facility] [address] [place] [address] Manjula Twila BUNon 01-13-2021 Urea nitrogen [Mass/Vol] 8.0 mg/dL Normal 7.0-17.0 [facility] Comment on above: Performed By: #### C VDTBH #### [facility] [address] [place], [place] [address] Manjula Twila CBC AUTO DIFFon 01-13-2021 BASO # 0.1 103/ul Normal 0.0-0.1 [facility] Comment on above: Performed By: #### C #### [facility] [address] [place], [place] [address] Manjula Twila Basophils/100 WBC (Bld) 0.5 % Normal 0.2-2.0 [facility] Comment on above: Performed By: #### C BC #### [facility] [address] [place], [place] [address] Manjula Twila EO # 0.1 103/ul Normal 0.0-0.7 [facility] Comment on above: Performed By: #### C BC #### [facility] [address] [place], [place] [address] Manjula Twila Eosinophils/100 WBC (Bld) 1.0 % Normal 0.9-7.0 [facility] Comment on above: Performed By: #### C BC #### [facility] [address] [place] [address] Manjula Twila Erythrocyte distribution width (RBC) [Ratio] 12.3 % Normal 11.0-15.0 [facility] Comment on above: Performed By: #### C BC #### [facility] [address] [place] [address] Manjula Tiwla Hematocrit (Bld) [Volume fraction] 32.7 % Critically low 36.0-48.0 [facility] Comment on above: Performed By: #### C BC #### [facility] [address] [place], [place] [address] Manjula Twila Hemoglobin (Bld) [Mass/Vol] 11.1 g/dL Critically low 12.0-16.0 [facility] Comment on above: Performed By: #### C BC #### [facility] [address] [place], [place] [address] Manjula Twila IG # 0.04 10e3/ul Critically high 0.00-0.03 [facility] Comment on above: Performed By: #### C BC #### [facility] [address] [place] [address] Manjula Twila IG % 0.3 % Normal 0.0-0.5 [facility] Comment on above: Performed By: #### C BC #### [facility] [address] [place], [place] [address] Manjula Twila LYMPH # 1.8 103/ul Normal 1.2-3.8 [facility] Comment on above: Performed By: #### C BC #### [facility] [address] [id number] Manjula Twila Lymphocytes/100 WBC (Bld) 14.5 % Critically low 20.5-60.0 [facility] Comment on above: Performed By: #### C BC #### [facility] [address] [id number] Manjula Twila MANUAL DIFF REQ NO Normal [facility] Comment on above: Performed By: #### C BC #### [facility] [address] [place], [place] [address] Majnula Twila MCH (RBC) [Entitic mass] 32.9 pg Normal 26.7-34.0 [facility] Comment on above: Performed By: #### C BC #### [facility] [address] [place], [place] [address] Manjulahaily Mattson MCHC (RBC) [Mass/Vol] 33.9 g/dL Normal 29.9-35.2 [facility] Comment on above: Performed By: #### C BC #### [facility] [address] [place], [place] [address] Manjula Twila MCV (RBC) [Entitic vol] 97.0 fL Normal 81.0-99.0 [facility] Comment on above: Performed By: #### C BC #### [facility] [address] [place], [place] [address] Manjula Twila MONO # 1.2 103/ul Critically high 0.3-0.8 [facility] Comment on above: Performed By: #### C BC #### [facility] [address] [place], [place] [address] Manjula Twila Monocytes/100 WBC (Bld) 9.6 % Normal 1.7-12.0 [facility] Comment on above: Performed By: #### C BC #### [facility] [address] [place], [place] [address] Manjula Twila NEUT # 9.3 103/ul Critically high 1.4-6.5 [facility] Comment on above: Performed By: #### C BC #### [facility] [address] [place], [place] [address] Manjula Mattson Neutrophils/100 WBC (Bld) 74.1 % Normal 43.0-75.0 [facility] Comment on above: Performed By: #### C BC #### [facility] [address] [place] [address] Manjula Mattson Platelet mean volume (Bld) [Entitic vol] 11.3 fL Normal 9.5-13.5 [facility] Comment on above: Performed By: #### C BC #### [facility] [address] [place] [address] Manjula Mattson PLT 205 103/ul Normal 150-450 [facility] Comment on above: Performed By: #### C BC #### [facility] [address] [place] [address] Manjula Mattson RBC 3.37 106/ul Critically low 4.20-5.40 [facility] Comment on above: Performed By: #### C BC #### [facility] [address] [place] [address] Manjula Mattson WBC 12.6 103/ul Critically high 4.0-11.0 [facility] Comment on above: Performed By: #### C BC #### [facility] [address] [place] [address] Manjula Mattson CREATININEon 01-13-2021 Creatinine [Mass/Vol] 0.84 mg/dL Normal 0.52-1.04 [facility] Comment on above: Performed By: #### C VDTBH #### [facility] [address] [place] [address] Manjula Mattson EGFR-AF GREEK >60 Normal >=60 [facility] Comment on above: Performed By: #### C VDTBH #### [facility] [address] [place] [address] Manjula Mattson EGFR-NON AF GREEK >60 Normal >=60 [facility] Comment on above: Performed By: #### C VDTBH #### [facility] [address] [place] [address] Manjula Mattson CBC AUTO DIFFon 01-12-2021 BASO # 0.1 103/ul Normal 0.0-0.1 [facility] Comment on above: Performed By: #### C BC #### [facility] [address] [place], [place] [address] Manjula Twila Basophils/100 WBC (Bld) 0.8 % Normal 0.2-2.0 [facility] Comment on above: Performed By: #### C BC #### [facility] [address] [place], [place] [address] Manjula Twila EO # 0.4 103/ul Normal 0.0-0.7 [facility] Comment on above: Performed By: #### C BC #### [facility] [address] [place], [place] [address] Manjula Twila Eosinophils/100 WBC (Bld) 4.1 % Normal 0.9-7.0 [facility] Comment on above: Performed By: #### C BC #### [facility] [address] [place] [address] Manjula Twila Erythrocyte distribution width (RBC) [Ratio] 12.3 % Normal 11.0-15.0 [facility] Comment on above: Performed By: #### C BC #### [facility] [address] [place], [place] [address] Manjula Twila Hematocrit (Bld) [Volume fraction] 40.0 % Normal 36.0-48.0 [facility] Comment on above: Performed By: #### C BC #### [facility] [address] [place], [place] [address] Manjula Twila Hemoglobin (Bld) [Mass/Vol] 13.5 g/dL Normal 12.0-16.0 [facility] Comment on above: Performed By: #### C BC #### [facility] [address] [place], [place] [address] Manjula Twila IG # 0.03 10e3/ul Normal 0.00-0.03 [facility] Comment on above: Performed By: #### C BC #### [facility] [address] [place], [place] [address] Manjula Twila IG % 0.3 % Normal 0.0-0.5 [facility] Comment on above: Performed By: #### C BC #### [facility] [address] [id number] Manjula Twila LYMPH # 2.5 103/ul Normal 1.2-3.8 [facility] Comment on above: Performed By: #### C BC #### [facility] [address] [place], [place] [address] Manjula Twila Lymphocytes/100 WBC (Bld) 27.2 % Normal 20.5-60.0 [facility] Comment on above: Performed By: #### C BC #### [facility] [address] [place], [place] [address] Manjula Tiwla MANUAL DIFF REQ NO Normal [facility] Comment on above: Performed By: #### C BC #### [facility] [address] [place], [place] [address] Manjula Twila MCH (RBC) [Entitic mass] 32.1 pg Normal 26.7-34.0 [facility] Comment on above: Performed By: #### C BC #### [facility] [address] [place], [place] [address] Manjula Twila MCHC (RBC) [Mass/Vol] 33.8 g/dL Normal 29.9-35.2 [facility] Comment on above: Performed By: #### C BC #### [facility] [address] [place], [place] [address] Manjula Twila MCV (RBC) [Entitic vol] 95.2 fL Normal 81.0-99.0 [facility] Comment on above: Performed By: #### C BC #### [facility] [address] [place], [place] [address] Manjula Twila MONO # 0.8 103/ul Normal 0.3-0.8 [facility] Comment on above: Performed By: #### C BC #### [facility] [address] [place], [place] [address] Manjula Twila Monocytes/100 WBC (Bld) 8.7 % Normal 1.7-12.0 [facility] Comment on above: Performed By: #### C BC #### [facility] [address] [place] [address] Manjulahaily Yepezen NEUT # 5.3 103/ul Normal 1.4-6.5 [facility] Comment on above: Performed By: #### C BC #### [facility] [address] [place], [place] [address] Manjula Mattson Neutrophils/100 WBC (Bld) 58.9 % Normal 43.0-75.0 [facility] Comment on above: Performed By: #### C BC #### [facility] [address] [place], [place] [address] Manjulahaily Mattson Platelet mean volume (Bld) [Entitic vol] 10.9 fL Normal 9.5-13.5 [facility] Comment on above: Performed By: #### C BC #### [facility] [address] [place] [address] Manjula Twila PLT 266 103/ul Normal 150-450 [facility] Comment on above: Performed By: #### C BC #### [facility] [address] [place] [address] Manjula Twila RBC 4.20 106/ul Normal 4.20-5.40 [facility] Comment on above: Performed By: #### C BC #### [facility] [address] [place] [address] Manjulahaily Yepezen WBC 9.0 103/ul Normal 4.0-11.0 [facility] Comment on above: Performed By: #### C BC #### [facility] [address] [place], [place] [address] Manjula Twila PREG QUANT HCGon 01-12-2021 HCG QUANT <1 Normal [facility] Comment on above: Performed By: #### C BC #### [facility] [address] [place], [place] [address] Manjula Twila HCG RANGE SEE BELOW Normal [facility] Comment on above: Result Comment: 5-50 0-1 WEEK 40-300 1-2 WEEKS 100-1,000 2-3 WEEKS 500-6,000 3-4 WEEKS 5,000-200,000 1-2 MONTHS 10,000-100,000 2-3 MONTHS 3,000-50,000 2ND TRIMESTER 1,000-50,000 3RD TRIMESTER Performed By: #### C BC #### [facility] [address] [place] [address] Manjula Mattson Covid-19 PCR (CVDTB)on 12-30 Sample Type Test performed using RT-PCR from a nasopharyngeal collected specimen. Normal [facility] Comment on above: Performed By: #### C VDTBH #### [facility] [address] [place] [address] Manjula Mattson SARS-CoV-2 (COVID-19) RNA ANIYAH+probe Ql (Unsp spec) Not detected Normal NOT DETECTED [facility] Comment on above: Result Comment: This test is not yet approved or cleared by the [place] FDA. When there are no FDA-approved or cleared tests available, and other criteria are met, FDA can make tests available under an emergency access mechanism called an Emergency Use Authorization (EUA). The EUA for this test is supported by the Multifocal Lens Inspector of Health and Human Service's (HHS's) declaration that circumstances exist to justify the emergency use of in vitro diagnostics for the detection and/or diagnosis of the virus that causes COVID-19. This EUA will remain in effect (meaning this test can be used) for the duration of the COVID-19 declaration justifying emergency of IVDs, unless it is terminated or revoked by FDA (after which the test may no longer be used). When diagnostic testing is negative, the possibility of a false negative should be considered in the context of a patient's recent exposures and the presence of clinical signs and symptoms consistent with SARS-CoV-2. Performed By: #### C VDTBH #### [facility] [address] [place] [address] Manjula Mattson TYPE AND SCREENon 01-09-2021 TYPE AND SCREEN Negative Normal [facility] Comment on above: Performed By: #### C BC #### [facility] [address] [place] [address] Manjula Mattson CBC AUTO DIFFon 12-22-2020 BASO # 0.1 103/ul Normal 0.0-0.1 [facility] Comment on above: Performed By: #### C BC #### [facility] [address] [id number] Manjula Twila Basophils/100 WBC (Bld) 1.0 % Normal 0.2-2.0 [facility] Comment on above: Performed By: #### C BC #### [facility] [address] [place], [place] [address] Manjula Twila EO # 0.3 103/ul Normal 0.0-0.7 [facility] Comment on above: Performed By: #### C BC #### [facility] [address] [place], [place] [address] Manjula Twila Eosinophils/100 WBC (Bld) 5.0 % Normal 0.9-7.0 [facility] Comment on above: Performed By: #### C BC #### [facility] [address] [place] [address] Manjula Twila Erythrocyte distribution width (RBC) [Ratio] 12.2 % Normal 11.0-15.0 [facility] Comment on above: Performed By: #### C BC #### [facility] [address] [place], [place] [address] Manjula Twila Hematocrit (Bld) [Volume fraction] 38.8 % Normal 36.0-48.0 [facility] Comment on above: Performed By: #### C BC #### [facility] [address] [place], [place] [address] Manjula Twila Hemoglobin (Bld) [Mass/Vol] 13.1 g/dL Normal 12.0-16.0 [facility] Comment on above: Performed By: #### C BC #### [facility] [address] [place] [address] Manjula Twila IG # 0.02 10e3/ul Normal 0.00-0.03 [facility] Comment on above: Performed By: #### C BC #### [facility] [address] [place], [place] [address] Manjula Twila IG % 0.3 % Normal 0.0-0.5 [facility] Comment on above: Performed By: #### C BC #### [facility] [address] [place], [place] [address] Manjula Twila LYMPH # 1.7 103/ul Normal 1.2-3.8 [facility] Comment on above: Performed By: #### C BC #### [facility] [address] [place], [place] [address] Manjula Twila Lymphocytes/100 WBC (Bld) 25.3 % Normal 20.5-60.0 [facility] Comment on above: Performed By: #### C BC #### [facility] [address] [place], [place] [address] Manjula Twila MANUAL DIFF REQ NO Normal [facility] Comment on above: Performed By: #### C BC #### [facility] [address] [place], [place] [address] Manjula Twila MCH (RBC) [Entitic mass] 32.3 pg Normal 26.7-34.0 [facility] Comment on above: Performed By: #### C BC #### [facility] [address] [place] [address] Manjula Twila MCHC (RBC) [Mass/Vol] 33.8 g/dL Normal 29.9-35.2 [facility] Comment on above: Performed By: #### C BC #### [facility] [address] [place], [place] [address] Manjula Twila MCV (RBC) [Entitic vol] 95.6 fL Normal 81.0-99.0 [facility] Comment on above: Performed By: #### C BC #### [facility] [address] [place] [address] Manjula Twila MONO # 0.7 103/ul Normal 0.3-0.8 [facility] Comment on above: Performed By: #### C BC #### [facility] [address] [place], [place] [address] Manjula Twila Monocytes/100 WBC (Bld) 10.2 % Normal 1.7-12.0 [facility] Comment on above: Performed By: #### C BC #### [facility] [address] [place] [address] Manjula Twila NEUT # 3.9 103/ul Normal 1.4-6.5 [facility] Comment on above: Performed By: #### C BC #### [facility] [address] [place], [place] [id number] Manjula Mattson Neutrophils/100 WBC (Bld) 58.2 % Normal 43.0-75.0 [facility] Comment on above: Performed By: #### C BC #### [facility] [address] [place] [address] Manjula Mattson Platelet mean volume (Bld) [Entitic vol] 10.9 fL Normal 9.5-13.5 [facility] Comment on above: Performed By: #### C BC #### [facility] [address] [place] [address] Manjula Mattson PLT 267 103/ul Normal 150-450 [facility] Comment on above: Performed By: #### C BC #### [facility] [address] [place] [address] Manjula Mattson RBC 4.06 106/ul Critically low 4.20-5.40 [facility] Comment on above: Performed By: #### C BC #### [facility] [address] [place] [address] Manjula Mattson WBC 6.8 103/ul Normal 4.0-11.0 [facility] Comment on above: Performed By: #### C BC #### [facility] [address] [place] [address] Manjula Mattson TSHon 12-22-2020 TSH 0.820 uIU/mL Normal 0.470-4.680 [facility] Comment on above: Performed By: #### T SH #### [facility] [address] [place] [address] Manjula Mattson TSH RANGE SEE BELOW Normal [facility] Comment on above: Result Comment: <0.3 4 UIU/ml HYPERTHYROID 0.34-5.60 UIU/ml EUTHYROID >5.60 UIU/ml HYPOTHYROID Performed By: #### T SH #### [facility] [address] [place] [address] Manjula Twila UA RANDOMon 12-22-2020 Bilirubin Ql (U) Negative Normal NEGATIVE [facility] Comment on above: Performed By: #### C BC #### [facility] [address] [place] [address] Manjula Twila Clarity (U) CLEAR Normal CLEAR [facility] Comment on above: Performed By: #### C BC #### [facility] [address] [place] [address] Manjula Twila Color (U) YELLOW Normal YELLOW [facility] Comment on above: Performed By: #### C BC #### [facility] [address] [place] [address] Manjula Twila Glucose Ql (U) Negative Normal NEGATIVE [facility] Comment on above: Performed By: #### C BC #### [facility] [address] [place] [address] Manjula Twila Hemoglobin Ql (U) Negative Normal NEGATIVE The [facility] Comment on above: Performed By: #### C BC #### [facility] [address] [place] [address] Manjula Twila Ketones Ql (U) Negative Normal NEGATIVE [facility] Comment on above: Performed By: #### C BC #### [facility] [address] [place] [address] Manjula Twila LEUKOCYTES Negative Normal NEGATIVE [facility] Comment on above: Performed By: #### C BC #### [facility] [address] [place] [address] Manjula Twila Nitrite Ql (U) Negative Normal NEGATIVE [facility] Comment on above: Performed By: #### C BC #### [facility] [address] [place] [address] Manjula Twila pH (U) 7.5 [pH] Normal 5-9 [facility] Comment on above: Performed By: #### C BC #### [facility] [address] [place] [address] Manjula Twila SPEC GRAVITY 1.015 Normal 1.005-<=1.025 [facility] Comment on above: Performed By: #### C BC #### [facility] [address] [place], [place] [id number] Manjula Twila UA PROTEIN Negative Normal NEGATIVE/ TRACE [facility] Comment on above: Performed By: #### C BC #### [facility] [address] [place], [place] [address] Manjulahaily Mattson Urobilinogen Qn (U) 1.0 {Marco Antonio'U}/dL Normal 0.2 - 1. 0 [facility] Comment on above: Performed By: #### C BC #### [facility] [address] [place], [place] [address] Manjula Twila CBC AUTO DIFFon 10-29-2020 BASO # 0.1 103/ul Normal 0.0-0.1 [facility] Comment on above: Performed By: #### C BC #### [facility] [address] [place], [place] [address] Manjula Twila Basophils/100 WBC (Bld) 0.8 % Normal 0.2-2.0 [facility] Comment on above: Performed By: #### C BC #### [facility] [address] [place], [place] [address] Manjula Twila EO # 0.2 103/ul Normal 0.0-0.7 [facility] Comment on above: Performed By: #### C BC #### [facility] [address] [place], [place] [address] Manjula Mattson Eosinophils/100 WBC (Bld) 2.3 % Normal 0.9-7.0 [facility] Comment on above: Performed By: #### C BC #### [facility] [address] [place], [place] [address] Manjula Twila Erythrocyte distribution width (RBC) [Ratio] 12.4 % Normal 11.0-15.0 [facility] Comment on above: Performed By: #### C BC #### [facility] [address] [place], [place] [address] Manjula Twila Hematocrit (Bld) [Volume fraction] 41.4 % Normal 36.0-48.0 [facility] Comment on above: Performed By: #### C BC #### [facility] [address] [place], [place] [address] Manjula Twila Hemoglobin (Bld) [Mass/Vol] 13.6 g/dL Normal 12.0-16.0 [facility] Comment on above: Performed By: #### C BC #### [facility] [address] [place] [address] Manjula Twila IG # 0.02 10e3/ul Normal 0.00-0.03 [facility] Comment on above: Performed By: #### C BC #### [facility] [address] [place] [address] Manjula Twila IG % 0.2 % Normal 0.0-0.5 [facility] Comment on above: Performed By: #### C BC #### [facility] [address] [place] [address] Manjula Twila LYMPH # 1.9 103/ul Normal 1.2-3.8 [facility] Comment on above: Performed By: #### C BC #### [facility] [address] [place] [address] Manjula Twila Lymphocytes/100 WBC (Bld) 19.0 % Critically low 20.5-60.0 [facility] Comment on above: Performed By: #### C BC #### [facility] [address] [place] [address] Manjula Twila MANUAL DIFF REQ NO Normal [facility] Comment on above: Performed By: #### C BC #### [facility] [address] [place] [address] Manjula Twila MCH (RBC) [Entitic mass] 31.9 pg Normal 26.7-34.0 [facility] Comment on above: Performed By: #### C BC #### [facility] [address] [place] [address] Amnjula Twila MCHC (RBC) [Mass/Vol] 32.9 g/dL Normal 29.9-35.2 [facility] Comment on above: Performed By: #### C BC #### [facility] [address] [place] [address] Manjula Twila MCV (RBC) [Entitic vol] 97.0 fL Normal 81.0-99.0 [facility] Comment on above: Performed By: #### C BC #### [facility] [address] [id number] Manjula Mattson MONO # 1.3 103/ul Critically high 0.3-0.8 [facility] Comment on above: Performed By: #### C BC #### [facility] [address] [address] Manjula Mattson Monocytes/100 WBC (Bld) 12.7 % Critically high 1.7-12.0 [facility] Comment on above: Performed By: #### C BC #### [facility] [address] [place] [address] Manjula Mattson NEUT # 6.4 103/ul Normal 1.4-6.5 [facility] Comment on above: Performed By: #### C BC #### [facility] [address] [place] [address] Manjula Mattson Neutrophils/100 WBC (Bld) 65.0 % Normal 43.0-75.0 [facility] Comment on above: Performed By: #### C BC #### [facility] [address] [place], [place] [address] Manjula Mattson Platelet mean volume (Bld) [Entitic vol] 11.9 fL Normal 9.5-13.5 [facility] Comment on above: Performed By: #### C BC #### [facility] [address] [place] [address] Manjulahaily Mattson PLT 262 103/ul Normal 150-450 [facility] Comment on above: Performed By: #### C BC #### [facility] [address] [place], [place] [address] Manjula Twila RBC 4.27 106/ul Normal 4.20-5.40 [facility] Comment on above: Performed By: #### C BC #### [facility] [address] [place], [place] [address] Manjula Twila WBC 9.9 103/ul Normal 4.0-11.0 [facility] Comment on above: Performed By: #### C BC #### [facility] [address] [place], [place] [address] Manjulahaily Mattson CT ABD/PELV W CONon 10-29-[address] ABD/PELV W CON EXAM: CT ABD/PELV W CON 10/29/2020 1:47 AM EST OH001 CLINICAL STATEMENT: Appendicitis COMPARISON: No prior studies are available at the time of dictation. TECHNIQUE: Helically acquired images were obtained of the abdomen and pelvis following oral and 100 cc of Omnipaque 300 IV contrast. AEC is utilized. 2-D reconstructed images are provided. FINDINGS: Cholecystectomy. The upper abdominal solid organs are unremarkable. There is no bowel obstruction or free air. There is no ascites. There is no evidence of aortic aneurysm or dissection. The celiac artery, superior mesenteric artery, and superior mesenteric vein are grossly patent. There is no retroperitoneal adenopathy. There is no appendicitis or diverticulitis. There are no pelvic masses or loculated fluid collections. 2.6 cm small right adnexal cyst. The uterus and bladder are unremarkable. The lung bases are clear. There are no destructive bone lesions identified. IMPRESSION: 2.6 cm small right adnexal cyst. No evidence for acute appendicitis. FOLLOW-UP: Follow-up as clinically indicated. Dose reduction techniques were achieved by using automated exposure control and/or adjustment of mA and/or kV according to patient size and/or use of iterative reconstruction technique. Electronically authenticated by: MONISHA MCNAIR Date: 2020-10-29 03:57 Normal [facility] ER URINE PROFILEon 1 Bilirubin Ql (U) Negative Normal NEGATIVE The [facility] Comment on above: Performed By: #### C BC #### [facility] [address] [place] [address] Manjula Yepezen Clarity (U) SL CLOUDY Abnormal CLEAR [facility] Comment on above: Performed By: #### C BC #### [facility] [address] [place] [address] Manjula Mattson Color (U) LT. YELLOW Normal YELLOW [facility] Comment on above: Performed By: #### C BC #### [facility] [address] [place], [place] [address] Manjula Twila ERUAHD A micrscopic examination will be performed if indicated. Normal [facility] Comment on above: Performed By: #### C BC #### [facility] [address] [place] [address] Manjula Twila Glucose Ql (U) Negative Normal NEGATIVE [facility] Comment on above: Performed By: #### C BC #### [facility] [address] [place] [address] Manjula Twila Hemoglobin Ql (U) Negative Normal NEGATIVE [facility] Comment on above: Performed By: #### C BC #### [facility] [address] [place] [address] Manjula Twila Ketones Ql (U) Negative Normal NEGATIVE [facility] Comment on above: Performed By: #### C BC #### [facility] [address] [place] [address] Manjula Twila LEUKOCYTES Negative Normal NEGATIVE [facility] Comment on above: Performed By: #### C BC #### [facility] [address] [place] [address] Manjula Twila Nitrite Ql (U) Negative Normal NEGATIVE [facility] Comment on above: Performed By: #### C BC #### [facility] [address] [place] [address] Manjual Twila pH (U) 6.0 [pH] Normal 5-9 [facility] Comment on above: Performed By: #### C BC #### [facility] [address] [place] [address] Manjula Twila SPEC GRAVITY 1.025 Normal 1.005-<=1.025 [facility] Comment on above: Performed By: #### C BC #### [facility] [address] [place] [address] Manjula Twila UA PROTEIN Negative Normal NEGATIVE/ TRACE [facility] Comment on above: Performed By: #### C BC #### [facility] [address] [place] [address] Manjula Twila UR MICRO IND NOT INDICATED Normal [facility] Comment on above: Performed By: #### C BC #### [facility] [address] [place] [address] Manjula Twila Urobilinogen Qn (U) 0.2 {Marco Antonio'U}/dL Normal 0.2 - 1. 0 [facility] Comment on above: Performed By: #### C BC #### [facility] [address] [place] [address] Manjula Twila LACTATE/LACTIC ACIDon 2020 Lactate [Moles/Vol] 0.6 mmol/L Critically low 0.7-2.0 [facility] Comment on above: Performed By: #### C VDTBH #### [facility] [address] [place] [address] Manjula Twila LIPASEon 10-29-2020 Lipase [Catalytic activity/Vol] 102.0 U/L Normal 23.0-300.0 [facility] Comment on above: Performed By: #### L FLOR OLVERA LIPA #### [facility] [address] [place] [address] Manjula Twila LIVER PROFILEon 10-29-2020 Albumin [Mass/Vol] 4.1 g/dL Normal 3.5-5.0 [facility] Comment on above: Performed By: #### FLOR PALENCIA LIPA #### [facility] [address] [place], [place] [address] Manjula Twila Albumin/Globulin [Mass ratio] 1.1 {ratio} Normal [facility] Comment on above: Performed By: #### L FLOR OLVERA, LIPA #### [facility] [address] [place] [address] Manjula Twila ALP [Catalytic activity/Vol] 84 U/L Normal 38-126 [facility] Comment on above: Performed By: #### L IVFLOR PATEL, LIPA #### [facility] [address] [place] [address] Manjula Twila ALT [Catalytic activity/Vol] 83 U/L Critically high 9-52 [facility] Comment on above: Performed By: #### Sierra IVFLOR PATEL, LIPA #### [facility] [address] [id number] Manjula Twila AST [Catalytic activity/Vol] 42 U/L Critically high 14-36 [facility] Comment on above: Performed By: #### L IVFLOR PATEL, LIPA #### [facility] [address] [place], [place] [address] Manjula Twila BILI, CONJUGATED 0.2 mg/dL Normal 0.0-0.3 [facility] Comment on above: Performed By: #### L IVAMANDA, BMP, LIPA #### [facility] [address] [place], [place] [address] Manjula Twila Bilirubin [Mass/Vol] 1.3 mg/dL Normal 0.2-1.3 [facility] Comment on above: Performed By: #### L IVAMANDA BMP, LIPA #### [facility] [address] [place], [place] [address] Manjula Twila Globulin (S) [Mass/Vol] 3.9 g/dL Normal [facility] Comment on above: Performed By: #### L IVAMANDA, BMP, LIPA #### [facility] [address] [place], [place] [address] Manjula Twila Protein [Mass/Vol] 8.0 g/dL Normal 6.1-8.2 [facility] Comment on above: Performed By: #### L IVAMANDA, BMP, LIPA #### [facility] [address] [place] [address] Manjula Twila URon 10-29-2020 , QUAL Negative Normal NEGATIVE [facility] Comment on above: Performed By: #### C VDTBH #### [facility] [address] [place], [place] [address] Manjula Twila PROF CHEM 8 (BAS METB)on Anion gap [Moles/Vol] 11.7 mmol/L Normal [facility] Comment on above: Performed By: #### L IVER, BMP, LIPA #### [facility] [address] [place], [place] [address] Manjula Twila Calcium [Mass/Vol] 9.7 mg/dL Normal 8.4-10.2 [facility] Comment on above: Performed By: #### L IVER BMP, LIPA #### [facility] [address] [place] [address] Manjula Twila Chloride [Moles/Vol] 104 mmol/L Normal 98-107 [facility] Comment on above: Performed By: #### L IVER BMP, LIPA #### [facility] [address] [place] [address] Manjula Twila CO2 [Moles/Vol] 28.1 mmol/L Normal 22.0-30.0 [facility] Comment on above: Performed By: #### L IVFLOR PATEL, LIPA #### [facility] [address] [place] [address] Manjula Twila Creatinine [Mass/Vol] 0.83 mg/dL Normal 0.52-1.04 [facility] Comment on above: Performed By: #### L IVFLOR PATEL, LIPA #### [facility] [address] [place] [address] Manjula Twila EGFR-AF GREEK >60 Normal >=60 [facility] Comment on above: Performed By: #### L IVFLOR PATEL, LIPA #### [facility] [address] [place] [address] Manjula Twila EGFR-NON AF GREEK >60 Normal >=60 [facility] Comment on above: Performed By: #### L IVFLOR PATEL, LIPA #### [facility] [address] [place] [address] Manjula Twila Glucose [Mass/Vol] 82 mg/dL Normal 74-106 [facility] Comment on above: Performed By: #### L IVAMANDA BMP, LIPA #### [facility] [address] [place] [address] Manjula Twila Potassium [Moles/Vol] 3.8 mmol/L Normal 3.4-5.0 [facility] Comment on above: Performed By: #### L IVER, BMP, LIPA #### [facility] [address] [place] [address] Manjula Twila Sodium [Moles/Vol] 140 mmol/L Normal 137-145 [facility] Comment on above: Performed By: #### L FLOR OLVERA LIPFortunato #### [facility] [address] [place], [place] [address] Manjula Twila Urea nitrogen [Mass/Vol] 13.0 mg/dL Normal 7.0-17.0 [facility] Comment on above: Performed By: #### L FLOR OLVERA, LIPA #### [facility] [address] [place], [place] [address] Manjula Twila Urea nitrogen/Creatinine [Mass ratio] 15.7 mg/mg Normal [facility] Comment on above: Performed By: #### L FLOR OLVERA LIPA #### [facility] [address] [place], [place] [address] Manjula Mattson US PELVIS TRANSVAGon 021 US PELVIS TRANSVAG EXAMINATION: US PELVIS TRANSVAG HISTORY: Complex cyst of uterine adnexa COMPARISON: No relevant comparison available. FINDINGS: Transvaginal images The uterus is normal in size, contour and echotexture measuring 8.4 x 5.4 x 4.1 cm. Anteverted. No focal myometrial mass. The endometrium measures 4.7 mm, normal. The right ovary is normal in size, contour and echotexture measuring 2.9 x 2.6 x 2.4 cm. Complex cystic area measuring 2.2 x 2.3 x 1.9 cm with possible fluid fluid level. Normal resistive index of 0.55. PSV/EDV: 17.6/8.0 cm/s. Venous flow 4.5 cm/s The left ovary is normal in size, contour and echotexture measuring 2.1 x 1.8 x 1.7 cm. Area of anechoic echogenicity measuring 1.4 x 1.4 x 1.2 cm, simple cyst. Normal resistive index of 0.44. PSV/EDV: 10.5/5.9 cm/s. Venous flow 3 cm/s IMPRESSION: 2.3 cm cystic lesion of the right ovary. I favor a complex or hemorrhagic cyst No evidence of ovarian torsion Electronically authenticated by: KIRT ZEE Date: 2020-10-29 08:45 Normal [facility] CT ABD/PELVIS WO CONon 10-28 CT ABD/PELVIS WO CON EXAMINATION: CT ABD/PELVIS WO CON HISTORY: CALCULUS OF KIDNEY , bilateral lower quadrant pain, right greater than left, difficulty urinating COMPARISON: No relevant comparison available. TECHNIQUE: Axial, Coronal, and Sagittal images were created without IV contrast. Dose reduction techniques were achieved by using automated exposure control and/or adjustment of mA and/or kV according to patient size and/or use of iterative reconstruction technique. FINDINGS: LUNG BASES: Bibasilar atelectasis LIVER: No enlargement, atrophy, abnormal density, or significant focal lesion. BILIARY: Surgical clips from cholecystectomy PANCREAS: No lesion, fluid collection, ductal dilatation, or atrophy. SPLEEN: No enlargement or focal lesion. ADRENALS: No mass or enlargement. KIDNEYS: No mass, obstruction, or calcification. BOWEL/MESENTERY: No visible mass, obstruction, or bowel wall thickening. AORTA/VASCULAR: No aneurysm or dissection. RETROPERITONEUM: No mass or adenopathy. LYMPH NODES: Increased number of normal-sized mesenteric lymph nodes URINARY BLADDER: No visible focal wall thickening, lesion, or calculus. PELVIC ORGANS: No visible mass. Pelvic organs appropriate for patient age. Tubal ligation clips ABDOMINAL WALL: No mass or hernia. BONES: No bony lesion or fracture. OTHER: Negative. IMPRESSION: No obstructive uropathy Electronically authenticated by: KIRT ZEE Date: 2020-10-28 10:23 Normal [facility] URon 10-28-2020 , QUAL Negative Normal NEGATIVE [facility] Comment on above: Performed By: #### C BC #### [facility] [address] [place] [address] Manjula Mattson CHLAMYDIA/GONOCOCCUS ANIYAH ( AB/URINE/PAPon 10-23-2020 Chlamydia trachomatis, ANIYAH Negative Normal Negative [facility] Comment on above: Performed By: #### C BC #### [facility] [address] [place] [address] Manjula Mattson Neisseria gonorrhoeae, ANIYAH Negative Normal Negative [facility] Comment on above: Performed By: #### C BC #### [facility] [address] [place], [place] [address] Manjula Mattson VAGINITIS/VAGINOSIS DNA PROB Enrique 10-20-2020 Jenniefr species Negative Normal Negative [facility] Comment on above: Performed By: #### C VDTBH #### [facility] [address] [place], [place] [address] Manjula Mattson Gardnerella vaginalis Positive Abnormal Negative [facility] Comment on above: Performed By: #### C VDTBH #### [facility] [address] [place], [place] [address] Manjula Mattson Trichomonas vaginalis Negative Normal Negative [facility] Comment on above: Performed By: #### C VDTBH #### [facility] [address] [place], [place] [address] Manjula Mattson D-DIMER,QUANTITATIVEon 03-20 Fibrin D-dimer FEU (PPP) [Mass/Vol] 0.36 <0.52 mg/L U [facility] Comment on above: Clinical cutoff: 0.5 0 mg/L FEU D-dimer may be used in conjunction with a non-high pretest probability assessment model to exclude PE and DVT. Results should always be interpreted in conjunction with patient's medical history, clinical presentation and other findings. D-Dimeron 03-20-2019 D-Dimer 0.36 mg/L FEU Normal <0.52 [facility] [place] Comment on above: Result Comment: Clin ical cutoff: 0.50 mg/L FEU D-dimer may be used in conjunction with a non-high pretest probability assessment model to exclude PE and DVT. Results should always be interpreted in conjunction with patient's medical history, clinical presentation and other findings. Performed By: #### D NGA #### [facility] [address] [place], [place] [address] Edgardo Gutierrez MD, PhD [phone] Vital Signs Date Time Vital Sign Value Performing Clinician Facility 10-08-2023 09:50-0500 Body height 162.6 cm Kirt Damon MD Work Phone: [facility] 10-08-2023 09:50-0500 Body mass index (BMI) [Ratio] 46 kg/m2 Kirt Damon MD Work Phone: [facility] 10-08-2023 09:50-0500 Body temperature 97.81 [degF] Kirt Damon MD Work Phone: [facility] 10-08-2023 09:50-0500 Body weight 121.56 kg Kirt Damon MD Work Phone: [facility] 10-08-2023 09:50-0500 Diastolic blood pressure 86 mm[Hg] Kirt Damon MD Work Phone: [facility] 10-08-2023 09:50-0500 Heart rate 80 /min Kirt Damon MD Work Phone: [facility] 10-08-2023 09:50-0500 Respiratory rate 16 /min Kirt Damon MD Work Phone: [facility] 10-08-2023 09:50-0500 Systolic blood pressure 122 mm[Hg] Kirt Damon MD Work Phone: [facility] 03-20-2019 05:08-0400 BMI (Body Mass Index) 46 kg/m2 [facility] 03-20-2019 05:08-0400 Body weight 121.56 kg [facility] 03-20-2019 05:08-0400 Height 162.6 cm [facility] 03-20-2019 05:07-0400 Body Temperature 98.1 [degF] [facility] 03-20-2019 05:07-0400 BP Diastolic 99 mm[Hg] [facility] 03-20-2019 05:07-0400 BP Systolic 189 mm[Hg] [facility] 03-20-2019 05:07-0400 Pulse (Heart Rate) 94 /min [facility] 03-20-2019 05:07-0400 Pulse Oximetry 100 % [facility] 03-20-2019 05:07-0400 Respiratory Rate 18 /min [facility] Encounters Encounter Date Encounter Type Care Provider Facility Start: 11-06-2023 End: 11-06-2023 ambulatory MARLY FRANCO Not Available Start: 10-10-2023 Telephone encounter Claire Monse LP N [facility] Start: 10-08-2023 End: 10-09-2023 ambulatory KIRT Choi [facility] Start: 10-08-2023 End: 10-08-2023 ambulatory KIRT Choi [facility] Start: 10-08-2023 End: 10-08-2023 Office outpatient visit 15 minutes Kirt Damon MD Work Phone: [facility] Comment on above: Acute ethmoidal sinu sitis, recurrence not specified (Primary Dx); Pharyngitis, unspecified etiology Start: 09-10-2023 End: 09-10-2023 ambulatory OSWALDO Kat TOLU Not Available Start: 09-05-2023 End: 09-05-2023 ambulatory JULISSA BAHENA Not Available Start: 09-18-2021 End: 09-18-[address] HELENE TELLEZ Facility:[facility] Start: 01-23-2021 Encounter for preprocedural laboratory examination DR MARLY FRANCO [facility] Start: 01-22-2021 End: 01-24-[address] KIRT DAMON Facility:[facility] Start: 01-21-2021 End: 01-21-[address] ЕКАТЕРИНА FORD Facility:[facility] Start: 01-15-2021 Encounter for preprocedural laboratory examination DR MARLY FRANCO [facility] Start: 01-12-2021 End: 01-13-2021 Evaluation and management of inpatient DR MARLY FRANCO Facility:[facility] Start: 01-09-2021 Encounter for other preprocedural examination DR MARLY FRANCO [facility] Start: 01-09-2021 End: 01-10-[address] MARLY FRANCO Facility:[facility] Start: 01-09-2021 End: 01-10-2021 Encounter for preprocedural laboratory examination DR MARLY FRANCO Facility:[facility] Start: 01-01-2021 End: 01-02-[address] MARLY FRANCO Facility:[facility] Start: 01-01-2021 End: 01-02-2021 Encounter for other preprocedural examination DR MARLY FRANCO Facility:[facility] Start: 12-22-2020 End: 12-23-[address] MARLY FRANCO Facility:[facility] Start: 10-29-2020 End: 10-29-[address] HECTOR KING Facility:[facility] Start: 10-28-2020 End: 10-28-[address] KIRT DAMON Facility:[facility] Start: 10-18-2020 End: 10-18-[address] MARLY FRANCO Facility:[facility] Start: 03-20-2019 End: 03-20-2019 Letter encounter Provider [place] [facility] Start: 03-20-2019 Emergency department patient visit KHUSHBU ROJAS [facility] Start: 03-20-2019 End: 03-20-2019 Emergency department patient visit Khushbu Rojas Work Phone: [facility] Emergency Department Procedures Date Procedure Procedure Detail Performing Clinician Start: 10-08-2023 Adult depression screening assessment Kirt Damon MD Work Phone: Start: 01-12-2021 Excision of Right Ovary, Open Approach DR ЕКАТЕРИНА FORD Start: 01-12-2021 Resection of Bilateral Fallopian Tubes, Open Approach DR ЕКАТЕРИНА FORD Start: 01-12-2021 Resection of Uterus, Open Approach DR ЕКАТЕРИНА FORD Start: 05-24-2019 H/O: surgery S/P nasal septoplasty Kirt Damon MD Work Phone: Start: 05-24-2019 History of tonsillectomy S/P tonsillectomy Kirt Damon MD Work Phone: Start: 03-20-2019 Fibrin dgradj products d-dimer quantitative Khushbu Bob Work Phone: Plan of Treatment Date Care Activity Detail Author Start: 12-09-2028 DTaP,Tdap and Td Vaccines (6 - Td or Tdap) DTaP,Tdap and Td Vaccines (6 - Td or Tdap) [facility] Start: 10-08-2024 Adult BMI Screening Adult BMI Screen ing [facility] Start: 10-08-2024 Depression Screening Depression Scre ening [facility] Start: 10-08-2024 Tobacco Screening Tobacco Screening [facility] Start: 02-26-2024 Adult BMI Follow Up Plan Adult BMI Follow Up Plan [facility] Start: 12-09-2023 End: 12-09-2023 Patient encounter procedure 12/09/2023 2:15 PM EDT Office Visit [facility] [address] [place] [address] Kirt Damon MD [address] [place], [place] [id number] [facility] Start: 05-02-2023 COVID-19 Vaccine ( season) COVID-19 Vaccine () [facility] Start: 05-02-2023 Influenza vaccination Influenza Vacc ine [facility] Start: 05-02-2019 Influenza vaccination INFLUENZA VACC INE (#1) [facility] Start: 11-21-2011 Screening for malign ant neoplasm of cervix PAP SMEAR DISCUSSION [facility] Start: 2009 Third diphtheria, tetanus and acellular pertussis (DTaP) vaccination TDAP (ADULT) [facility] Start: 2008 Tetanus vaccination TETANUS [facility] Start: 11-21-2003 HIV screening HIV SCREENING DISCUSSION [facility] Start: 1990 Tobacco Counseling Tobacco Counselin g [facility] Immunizations Immunization Date Immunization Notes Care Provider Fa cility 08-22-2023 tuberculin skin test ; purified protein derivative solution, intradermal Kirt Damon MD Work Phone: [facility] 08-15-2023 tuberculin skin test ; purified protein derivative solution, intradermal Kirt Damon MD Work Phone: [facility] 01-31-2023 influenza, injectabl e, quadrivalent, preservative free Kirt Damno MD Work Phone: [facility] 01-31-2023 influenza virus vaccine, unspecified formulation Kirt Damon MD Work Phone: [facility] 05-21-2022 tuberculin skin test ; purified protein derivative solution, intradermal Kirt Damon MD Work Phone: [facility] 05-14-2022 tuberculin skin test ; purified protein derivative solution, intradermal Kirt Damon MD Work Phone: [facility] 06-02-2020 influenza virus vaccine, unspecified formulation Kirt Damon MD Work Phone: [facility] 06-02-2020 Seasonal, quadrivale nt, recombinant, injectable influenza vaccine, preservative free Kirt Damon MD Work Phone: [facility] 06-14-2019 influenza virus vaccine, unspecified formulation Kirt Damon MD Work Phone: [facility] 06-14-2019 influenza, seasonal, injectable Kirt Damon MD Work Phone: [facility] 06-08-2019 influenza virus vaccine, unspecified formulation Kirt Damon MD Work Phone: [facility] 06-08-2019 influenza, seasonal, injectable Kirt Damon MD Work Phone: [facility] 12-09-2018 tetanus toxoid, redu juanpablo diphtheria toxoid, and acellular pertussis vaccine, adsorbed Kirt Damon MD Work Phone: [facility] 05-19-2003 hepatitis B vaccine, adult dosage Kirt Damon MD Work Phone: [facility] 05-19-2003 hepatitis B vaccine, pediatric or pediatric/adolescent dosage Kirt Damon MD Work Phone: [facility] 04-28-2003 hepatitis B vaccine, adult dosage Kirt Damon MD Work Phone: [facility] 12-06-2002 hepatitis B vaccine, adult dosage Kirt Damon MD Work Phone: [facility] 12-06-2002 hepatitis B vaccine, pediatric or pediatric/adolescent dosage Kirt Damon MD Work Phone: [facility] 10-29-2002 hepatitis B vaccine, pediatric or pediatric/adolescent dosage Kirt Damon MD Work Phone: [facility] 10-29-2002 measles, mumps and rubella virus vaccine Kirt Damon MD Work Phone: [facility] 04-23-1995 diphtheria, tetanus toxoids and acellular pertussis vaccine Kirt Damon MD Work Phone: [facility] 04-23-1995 diphtheria, tetanus toxoids and acellular pertussis vaccine, unspecified formulation Kirt Damon MD Work Phone: [facility] 04-23-1995 poliovirus vaccine, unspecified formulation Kirt Damon MD Work Phone: [facility] 02-22-1992 haemophilus influenz ae type b vaccine, conjugate unspecified formulation Kirt Damon MD Work Phone: [facility] 02-22-1992 measles, mumps and rubella virus vaccine Kirt Damon MD Work Phone: [facility] 05-31-1991 diphtheria, tetanus toxoids and acellular pertussis vaccine Kirt Damon MD Work Phone: [facility] 05-31-1991 diphtheria, tetanus toxoids and acellular pertussis vaccine, unspecified formulation Kirt Damon MD Work Phone: [facility] 05-31-1991 haemophilus influenz ae type b vaccine, conjugate unspecified formulation Kirt Damon MD Work Phone: [facility] 05-31-1991 poliovirus vaccine, unspecified formulation Kirt Damon MD Work Phone: [facility] 03-23-1991 diphtheria, tetanus toxoids and acellular pertussis vaccine Kirt Damon MD Work Phone: [facility] 03-23-1991 diphtheria, tetanus toxoids and acellular pertussis vaccine, unspecified formulation Kirt Damon MD Work Phone: [facility] 03-23-1991 haemophilus influenz ae type b vaccine, conjugate unspecified formulation Kirt Damon MD Work Phone: [facility] 03-23-1991 poliovirus vaccine, unspecified formulation Kirt Damon MD Work Phone: [facility] 02-09-1991 diphtheria, tetanus toxoids and acellular pertussis vaccine Kirt Damon MD Work Phone: [facility] 02-09-1991 diphtheria, tetanus toxoids and acellular pertussis vaccine, unspecified formulation Kirt Damon MD Work Phone: [facility] 02-09-1991 haemophilus influenz ae type b vaccine, conjugate unspecified formulation Kirt Damon MD Work Phone: [facility] 02-09-1991 poliovirus vaccine, unspecified formulation Kirt Damon MD Work Phone: [facility] Payers Date Payer Category Payer Unknown [facility] xxxxxxxxxxxx 2019-Present [id number] 2018 Medicaid [employer] [id number] 2018-Present [phone] [facility] [address] [place] [address] [id number] 1990 Unknown [id number] 1990 Unknown [id number] 1990 Unknown [id number] 1990 Unknown [id number] 1990 Unknown [id number] 1990 Unknown [id number] 1990 Unknown [id number] 1990 Unknown [id number] 1990 Unknown [id number] [id number] 1990 Unknown [id number] 1990 Unknown [id number] [id number] 1990 Unknown [id number] [id number] 6 1990 Unknown [id number] 6 1990 Unknown [id number] [id number] 9 1990 Unknown [id number] 9 1990 Unknown [id number] 9 1959 Unknown [id number] Social History Date Type Detail Facility Start: 03-20-2019 Tobacco smoking stat [facility] Current some day smoker [facility] Start: 03-20-2019 Alcohol Comment social [facility] Start: 1990 Sex Assigned At Not on file [facility] Start: 09-05-2022 [facility] daily [facility] History of tobacco use Tobacco U se Types Packs/Day Years Used Date Smoking Tobacco: Every Day Vaping/E-cigarettes Smokeless Tobacco: Never [facility] Start: 09-05-2022 Tobacco use and exposure Smoke less tobacco non-user [facility] Start: 10-08-2023 Alcohol intake Current drinke r of alcohol (finding) [facility] Start: 07-02-2021 End: 10-08-2023 History of Social function [facility] Start: 07-02-2021 End: 10-08-2023 Social connection and isolation panel [facility] Do you belong to any clubs or organizations such as confucianist groups, unions, fraternal or athletic groups, or school groups? No [facility] Are you now , , , , never or living with a partner? Never [facility] How often to you hav e a drink containing alcohol? Monthly or less [facility] How many standard dr inks containing alcohol do you have on a typical day? 1 or 2 [facility] How often do you hav e 6 or more drinks on 1 occasion? Less than monthly [facility] How hard is it for y ou to pay for the very basics like food, housing, medical care, and heating Somewhat hard [facility] Adolescent depressio n screening assessment 0 [facility] Do you feel stress - tense, restless, nervous, or anxious, or unable to sleep at night because your mind is troubled all the time - these days [OSQ] Rather much [facility] Start: 11-05-2019 Education 12 [facility] Start: 07-19-2017 Alcohol Comment rarely [facility] Note 10-10-2023 Telephone Encounter - Claire Shea LPN - 10/10/2023 2:26 PM EST Note Date & Type Note Facility 10-10-2023 Miscellaneous Notes Formattin g of this note might be different from the original. Lorazepam controlled medication contract signed 10-08-2023 documented in this encounter [facility] Telephone encounter Note 10-10-2023 Telephone Encounter - Claire Shea LPN - 10/10/2023 2:26 PM EST Note Date & Type Note Facility 10-10-2023 Telephone encount er Note Lorazepam controlled medication contract signed 10-08-2023 [facility] History of Present illness Narrative 10-08-2023 Kirt Damon MD - 10/08/2023 9:45 AM EST Note Date & Type Note Facility 10-08-2023 History of Presen t illness Narrative Images from the original note were not included. [address] [place] [address] SUBJECTIVE: Patient ID: Khris Mancilla is a 32 y.o. female. 32 yo WF with 1 wekk of sore throat and nasal congestion, with mild cough, no fever32 yo wf sick x 1 week exposed to mono The following portions of the patient's history were reviewed and updated as appropriate: allergies, current medications, past family history, past medical history, past social history, past surgical history and problem list. REVIEW OF SYSTEMS: Review of Systems HENT: Positive for congestion and sore throat. Respiratory: Positive for cough. PHYSICAL EXAMINATION: Vitals: 10/08/23 0950 BP: 122/86 BP Site: Left Arm BP Postition: Sitting BP CUFF SIZE: M (9-13 inches) Pulse: 80 Resp: 16 Temp: 36.6 C (97.8 F) TempSrc: Tympanic Weight: 121.6 kg (268 lb) Height: 162.6 cm (5' 4 ) Physical Exam Vitals and nursing note reviewed. Constitutional: Appearance: Normal appearance. HENT: Head: Normocephalic and atraumatic. Nose: Congestion present. Mouth/Throat: Pharynx: Posterior oropharyngeal erythema present. Eyes: Extraocular Movements: Extraocular movements intact. Pupils: Pupils are equal, round, and reactive to light. Cardiovascular: Rate and Rhythm: Normal rate and regular rhythm. Pulses: Normal pulses. Heart sounds: Normal heart sounds. Pulmonary: Effort: Pulmonary effort is normal. Breath sounds: Normal breath sounds. Skin: General: Skin is warm and dry. Neurological: General: No focal deficit present. Mental Status: She is alert and oriented to person, place, and time. Psychiatric: Mood and Affect: Mood normal. Behavior: Behavior normal. ASSESSMENT/PLAN: Khris was seen today for sinus problem and earache. Diagnoses and all orders for this visit: Acute ethmoidal sinusitis, recurrence not specified Pharyngitis, unspecified etiology - Mononucleosis screen; Future - CBC auto differential; Future Other orders - cefDINIR (OMNICEF) 300 mg capsule; Take 1 capsule (300 mg total) by mouth in the morning and 1 capsule (300 mg total) before bedtime. Do all this for 10 days. Follow-up: Cbc , mono test Cefdinir 300mg bid documented in this encounter [facility] Clinical Note 01-12-2021 Note Date & Type Note Facility 01-12-2021 Note The [place], [place] NAME: KHRIS MANCILLA DATE OF : MEDICAL REC#: [id number] PRODUCTION PATTERN MAKER: [id number], BL[place] ADMIT DATE: 01/12/2021 05:53:00 POULTRY TRIMMER DATE: 01/12/2021 11:00 DICTATING PHYSICIAN: MARLY FRANCO DICTATION DATE: 01/12/2021 09:00 OPERATIVE NOTE OPERATION DATE: 01-12-21 ANESTHETIC:General. DIESEL ENGINE MECHANIC:ARIAN Singleton. PREOPERATIVE DIAGNOSIS: 1. Menorrhagia. 2. Dysmenorrhea. 3. Dyspareunia. POSTOPERATIVE DIAGNOSIS:Same as above. PROCEDURE NAME:Total abdominal hysterectomy, bilateral salpingectomy, with cystoscopy and right ovarian cystectomy. URINE OUTPUT:Yellow and clear. SPECIMENS: Uterus and tubes. PROCEDURE: Patient was taken back to the Operating Room where she was given general anesthesia without difficulty. She was then prepped and draped in the normal sterile fashion. A Pfannenstiel skin incision was then made 2 cm above the symphysis and pubis and carried down to underlying rectus fascia using a Bovie. The fascia was incised in the midline and extended bilaterally using Shah scissors. Two Niyah clamps were placed on the superior aspect of the fascia and dissected off the underlying rectus muscle. The same was performed on the inferior aspect as well. The muscle was then in the midline. The peritoneum was identified and entered bluntly. Peritoneum was then extended superiorly and inferiorly with good visualization of the bladder. An O'Pretty- O-Vinicio retractor was placed into the patient's abdomen. The bowel was packed away with moist laparotomy sponges and the bladder blade was inserted. A Leahey tenaculum was placed on the patient's uterus and used for retraction. LigaSure apparatus was then used to come across the uteroovarian ligament and mesosalpingx on the patient's right side which was then cauterized and transected. This was carried down serially through the broad ligament and across the round ligament. This was performed on the contralateral side as well. The LigaSure was used to perform the right ovarian cystectomy. The bladder flap was then created using the Metzenbaum scissors, and the bladder was easily dissected off the patient's lower uterine segment. A curved Celestina was placed across the uterine artery on the right side which was clamped, transected, and suture ligated using #0 Monocryl. This was performed on the contralateral side as well. The bladder was further dissected and a Zeppelin clamp was then placed across the uterosacral and cardinal ligaments. This was transected and suture ligated using #0 Monocryl. This was performed on the contralateral side as well. The uterus was then amputated using Diana scissors. The patient's cuff was closed using #0 PDS in a running locked fashion and this was transfixed to the ipsilateral uterosacral and cardinal ligaments. Excellent hemostasis was assured. The patient's abdomen was copiously irrigated using warm saline. Cystoscopy was performed. Bladder was intact. Efflux was noted from both ostia. Cystoscope was removed. After excellent hemostasis was assured, all instruments were removed from the patient's abdomen. The patient's peritoneum was closed using 3-0 Vicryl in a running fashion. The patient's fascia was closed using #0 Vicryl in a running fashion. The patient's skin was closed using kishan. The patient tolerated the procedure well. Sponge, lap, and needle counts were correct times two. Patient taken to the Recovery Room in stable condition Electronically Authenticated and Edited by: Marly Franco DO on 01/16/2021 07:54 AM EDT IF Signed and Approved by: DR MARLY FRANCO . 01/16/2021 07:54:00 [facility] Discharge summary note 01-12-2021 Note Date & Type Note Facility 01-12-2021 Note DISCHARGE SUMMARY Discharge Date: 01-13-21 PRIMARY DIAGNOSIS: 1. Menorrhagia. 2. Dysmenorrhea. 3. Dyspareunia. PROCEDURE: Total abdominal hysterectomy, bilateral salpingectomy with cystoscopy, right ovarian cystectomy. CONSULTATION: Anesthesia. HOSPITAL COURSE: Was as expected, please see chart for full details. LABS: Please see chart. DISCHARGE CONDITION: Stable. DISCHARGE PLAN: ACTIVITY: Pelvic rest for 6 weeks. No heavy lifting for 6 weeks greater than [address] pain free and no longer on narcotics. DIET: Regular. MEDICATIONS: Percocet, 5/325, 1-2 p.o. q4-5h p.r.n. pain. Motrin, 800, 1 p.o. q8h p.r.n. pain. FOLLOW-UP: In 1 week. The patient was instructed to return to the hospital with any vaginal bleeding greater than a period. Any fever unrelieved by Tylenol, any abdominal pain unrelieved with narcotics. [facility] Signed and Approved by: DR MARLY FRANCO . 01/22/2021 21:41:00 [facility] Evaluation note Note Date & Type Note Facility Evaluation note Diagnosis Acute ethmoidal sinusitis, recurrence not specified- Primary Pharyngitis, unspecified etiology documented in this encounter [facility] Instructions Note Date & Type Note Facility Instructions Not on filedocumented in this en counter [facility] Instructions Note Date & Type Note Facility Instructions Not on filedocumented in this en counter [facility] Summary Purpose Family History No Family History Records FoundNo Family History Records FoundNo Family History Records FoundNo Family History Records FoundNo Family History Records Found Advance Directives No Advanced Directives Records FoundNo Advanced Directives Records FoundNo Advanced Directives Records FoundNo Advanced Directives Records FoundNo Advanced Directives Records Found Discharge Instructions * Instructions* Khushbu Rojas, - 03/20/2019 Use Tylenol or Motrin [id number] as needed for pain. Follow package directions. documented in this encounter Assessments Diagnosis Left arm pain- Primary Pain in limb Additional Source Comments INFORMATION SOURCE (unrecogn ized section and content) DATE CREATED AUTHOR 03/20/2019 [facility] ([place]) DATE CREATED AUTHOR AUTHOR'S ORGANIZ ATION 09/22/2021 [facility] DATE CREATED AUTHOR AUTHOR'S ORGANIZ ATION [facility]2023 [facility] DATE CREATED AUTHOR AUTHOR'S ORGANIZ ATION 10/[facility]2023 [facility] DATE CREATED AUTHOR AUTHOR'S ORGANTULIO ATION 11/07/2023 [facility] EPIC Reason for Visit (unrecogniz ed section and content) Reason Comments Arm Pain Reason Comments Sinus Problem Earache right Care Teams (unrecognized sec tion and content) [employer] Relationship Specialty Start Date End Date Kirt Damon MD [address] [place], [place] [id number] PCP - General Family Medicine 10/26/22 [employer] Relationship Specialty Start Date End Date Kirt Damon MD [address] [place] [address] PCP - General Family Medicine 10/26/22 FOR RECORDS PERTAINING TO PATIENTS WHO ARE OR HAVE BEEN ENROLLED IN A CHEMICAL DEPENDENCY/SUBSTANCEABUSE PROGRAM, SOME INFORMATION MAY BE OMITTED. This clinical summary was aggregated from multiple sources. Caution should be exercised in using it in the provision of clinical care. This summary normalizes information from multiple sources, and as a consequence, information in this document may materially change the coding, format and clinical context of patient data. In addition, data may be omitted in some cases. CLINICAL DECISIONS SHOULD BE BASED ON THE PRIMARY CLINICAL RECORDS. [employer] provides no warranty or guarantee of the accuracy or completeness of information in this document.
== END 2023-11-18 14:33 | disposition home or self-care (01) ==
LOC: NOMS 14:33
PROVIDERS: PCP Family Medicine; Visit Provider Obstetrics & Gynecology
DX: N94.10 Unspecified dyspareunia (principal); R10.2 Pelvic and perineal pain; N83.292 Other ovarian cyst, left side
CPT/HCPCS: 76830; 76856